=== PATIENT | female | born 1990 | race Caucasian/White ===

== ENCOUNTER 2020-02-21 08:46 | Emergency (ER) | payer MEDICARE, MEDICAID, SELFPAY ==
[2020-02-21 08:58] VITALS: BP 163/96; PULSE 100; RESP 18; TEMP 36.4; O2SAT 97; BMI 38.0
--- NOTE | 2020-02-21 09:13 | ECG_ITS ---
Test Reason : CHEST DISCOMFORT Blood Pressure : / mmHG Vent. Rate : 085 BPM Atrial Rate : 085 BPM P-R Int : 130 ms QRS Dur : 076 ms QT Int : 378 ms P-R-T Axes : 011 006 019 degrees QTc Int : 449 ms Normal sinus rhythm Normal ECG When compared with ECG of 09-OCT-2019 16:13, No significant change was found Referred By: Natalia Griffin Electronically Signed By:ADEBAYO PIÑA
--- NOTE | 2020-02-21 09:14 | XR_ITS ---
EXAMINATION: XR CHEST CLINICAL INFORMATION: Chest pain COMPARISON: 10/09/2019 TECHNIQUE: Frontal view of the chest was obtained. FINDINGS: Lungs are well-inflated and clear. Trachea is midline in position. No interstitial disease, consolidation or mass. No pleural effusion or pneumothorax. Cardiac silhouette and pulmonary vessels are normal in size. The mediastinum and octavia have normal contour. The visualized bones, and upper abdomen, are unremarkable. XR/XR chest 1V IMPRESSION: No acute cardiopulmonary abnormality.
--- NOTE | 2020-02-21 09:19 | ED.GENADULT ---
HPI - General Adult General Chief complaint: General Medical Stated complaint: facial swelling, multiple complaints Time Seen by Provider: 02/21/20 09:03 Source: patient Mode of arrival: ambulatory History of Present Illness HPI narrative: 29-year-old female with a past medical history of Brando's on levothyroxine complaining of facial, hand, and feet swelling x today. Also reports intermittent chest pain worsening the past couple days. Denies missing any doses of levothyroxine. Denies SOB, intraoral swelling, difficulty swallowing/handling secretions, cough, fever, recent travel Onset (ago): day(s) Related Data Allergies Allergy/AdvReac Type Severity Reaction Status Date / Time ventura Allergy Severe ANAPHYLAXIS Verified 02/21/20 08:55 soy [Soy] Allergy Severe ANAPHYLAXIS Verified 02/21/20 08:55 amoxicillin [Amoxicillin] Allergy Intermediate HIVES Verified 02/21/20 08:56 Amoxicillin Allergy Unknown anaphylaxis Uncoded 10/13/11 00:00 From Prozac AdvReac Intermediate HALLUCINATI Uncoded 11/29/19 16:43 ONS Review of Systems Review of Systems: Constitutional: No Weight loss, No Fever, No Chills, No Night Sweats ENT/Mouth: +facial swelling, No Hearing loss, No Ear Pain, No Nasal Congestion, No Hoarseness, No sore throat, No Swallowing Difficulty Eyes: No Eye Pain, No Swelling, No Vision Changes Cardiovascular: +Chest Pain, No SOB, No Dyspnea on Exertion, No Orthopnea Respiratory: No Cough, No Sputum, No Wheezing, No Smoke Exposure, No Dyspnea Gastrointestinal: No Nausea, No Vomiting, No Diarrhea, No Constipation, No Abdominal pain Musculoskeletal: No joint pain, No Myalgias, + generalized swelling Skin: No Skin Lesions, No rash Yes all other systems are reviewed and are negative [facility] Past Medical History Attestation statement: The following information was validated with the patient. Medical History (Updated 02/21/20 @ 11:03 by LAURA Rene) Brando thyroiditis, fibrous variant Social History Social History Advance Directives: No Advance Directives Information Provided: No Physical Exam Vital Signs: Vital Signs: Last Vital Signs Temp 97.6 F 02/21/20 08:58 Pulse 100 02/21/20 08:58 Resp 18 02/21/20 08:58 BP 163/96 H 02/21/20 08:58 Pulse Ox 97 02/21/20 08:58 Body Mass Index 38.0 Const: General: cooperative and healthy appearing Orientation/consciousness: patient oriented x3 Limitations: no limitations HENMT: Other: +mild generalized facial/submandibular swelling. No erythema/cellulitis/tenderness/fluctuance/induration Head: Yes normal to inspection Ears: hearing grossly normal bilaterally General nose exam: Normal external nose present Mouth: Normal oral and palatal mucosa present, lip normal, tongue normal, oropharynx normal, no drooling, no muffled voice and No restricted motion Throat: Yes posterior oropharynx normal, Yes uvula midline, No peritonsillar mass and No uvular edema Eyes: General: appearance normal, both eyes and all related structures EOM: EOMs intact bilaterally Neck: Neck: Yes normal visual inspection, Yes no lymphadenopathy, Yes no meningeal signs, Yes trachea midline and No torticollis Resp: Effort & Inspection: normal respiratory effort, not labored and no stridor Auscultation: clear to auscultation bilaterally, no crackles, no rhonchi and no wheezes Cardio: Rate: regular rate Heart sounds: S1 normal heart sound present and S2 normal heart sound present GI: Inspection: Yes normal to inspection Palpation (GI): Soft to palpation Skin: Rashes: no rashes Wounds: no wounds Neuro: General: patient oriented x3 and no meningeal signs Gait exam (Neuro): Normal gait present Extrem: Other: no appreciable hand/foot swelling General: Yes normal to inspection Course Course Course Narrative: -labs unremarkable, trop and TSH WNL UA with RBCs> currently menstruating CXR unremarkable Lab results discussed with patient including worrisome signs and symptoms and strict return precautions. Patient is to follow-up with her primary care doctor. Patient was given dose of Decadron in the ED. Medical Decision Making MDM Narrative Medical decision making narrative: 29-year-old female with a past medical history of Brando's on levothyroxine complaining of facial, hand, and feet swelling x today. Also reports intermittent chest pain worsening the past couple days. On exam VSS, NAD/nontoxic appearing, mild facial swelling noted. No intraoral swelling appreciated. Uvula midline. No respiratory distress, lungs CTA. Concern for metabolic abnormalities or thyroid dysfunction. Low concern for infectious etiology including [employer], Gilmar's angina, or cellulitis/edema. Rule out ACS. Plan: EKG, labs, CXR, PO Decadron, reassess Lab Data Result diagrams: 02/21/20 09:33 02/21/20 09:32 Labs: Lab Results 02/21/20 02/21/20 02/21/20 Range/Units 09:30 09:30 09:32 WBC (4.8-10.8) X10*3/uL RBC (4.20-5.50) X10*6/uL Hgb (12.0-16.0) g/dl Hct (37-47) % MCV (80-98) fL MCH (27.0-33.0) pg MCHC (31.0-35.0) g/dl RDW (11.0-16.0) % Plt Count (160-400) X10*3/uL MPV (9.4-12.3) fL Immature Gran % (Auto) (0.0-0.4) % Neut % (Auto) (45-73) % Lymph % (Auto) (20-40) % [place] % (Auto) (2-11) % Eos % (Auto) (0-4) % Baso % (Auto) (0-2) % Lymph # (Auto) (1.2-4.9) X10*3/uL [place] # (Auto) (0.1-1.2) X10*3/uL Eos # (Auto) (0.0-0.4) X10*3/uL Baso # (Auto) (0.0-0.2) X10*3/uL Abs Immat Gran (auto) (0.00-0.03) X10*3/uL Absolute Neuts (auto) (2.0-8.3) X10*3/uL Absolute Nucleated RBC (0.0-0.012) X10*3/uL Nucleated RBC % (auto) (0.0-0.2) /100WBC Hold Blue Top Sodium 135 (135-145) mmol/L Potassium 3.8 (3.3-5.1) mmol/l Chloride 104 (96-108) mmol/L Carbon Dioxide 21 L (22-29) mmol/L Anion Gap 14 (12-20) BUN 10 (9-16) mg/dL Creatinine 0.71 (0.5-1.4) mg/dL Estim Creat Clear Calc 117.7 Estimated GFR > 60 Random Glucose 105 (60-115) mg/dL Calcium 9.3 (8.4-10.2) mg/dL Magnesium 1.9 (1.6-2.6) mg/dL Total Bilirubin 0.4 (0.0-1.0) mg/dL Direct Bilirubin 0.2 (0.0-0.5) mg/dL AST 23 (5-31) U/L ALT 26 (0-31) U/L Alkaline Phosphatase 98 (39-117) U/L Troponin I High Sens (<3.5-17.0) ng/L B-Natriuretic Peptide (<100) pg/mL Total Protein 7.6 (6.5-8.0) g/dL Albumin 4.6 (3.5-5.0) g/dL TSH 1.40 (0.32-4.0) mIU/mL Urine Color RED Urine Appearance TURBID Urine pH 6.0 (5.0-8.0) Ur Specific [place] >= 1.030 H (1.005-1.025) Urine Protein 1+ H (NEG-TRACE) MG/DL Urine Glucose (UA) NEG (NEG) MG/DL Urine Ketones NEG (NEG) MG/DL Urine Blood 3+ H (NEG) Urine Nitrite NEG (NEG) Ur Leukocyte Esterase NEG (NEG) Urine RBC TNTC H (0) /HPF Urine WBC 1-4 (0-4) /HPF Ur Squamous Epith Cells 1+ /LPF Urine Bacteria 1+ /LPF Urine Test NEGATIVE (NEGATIVE) 02/21/20 02/21/20 02/21/20 Range/Units 09:32 09:32 09:33 WBC 7.5 (4.8-10.8) X10*3/uL RBC 4.81 (4.20-5.50) X10*6/uL Hgb 13.6 (12.0-16.0) g/dl Hct 40.1 (37-47) % MCV 83.4 (80-98) fL MCH 28.3 (27.0-33.0) pg MCHC 33.9 (31.0-35.0) g/dl RDW 12.3 (11.0-16.0) % Plt Count 257 (160-400) X10*3/uL MPV 10.7 (9.4-12.3) fL Immature Gran % (Auto) 0.3 (0.0-0.4) % Neut % (Auto) 69.0 (45-73) % Lymph % (Auto) 19.7 L (20-40) % [place] % (Auto) 6.9 (2-11) % Eos % (Auto) 3.7 (0-4) % Baso % (Auto) 0.4 (0-2) % Lymph # (Auto) 1.5 (1.2-4.9) X10*3/uL [place] # (Auto) 0.5 (0.1-1.2) X10*3/uL Eos # (Auto) 0.3 (0.0-0.4) X10*3/uL Baso # (Auto) 0.0 (0.0-0.2) X10*3/uL Abs Immat Gran (auto) 0.02 (0.00-0.03) X10*3/uL Absolute Neuts (auto) 5.2 (2.0-8.3) X10*3/uL Absolute Nucleated RBC 0.000 (0.0-0.012) X10*3/uL Nucleated RBC % (auto) 0.0 (0.0-0.2) /100WBC Hold Blue Top SEE NOTE Sodium (135-145) mmol/L Potassium (3.3-5.1) mmol/l Chloride (96-108) mmol/L Carbon Dioxide (22-29) mmol/L Anion Gap (12-20) BUN (9-16) mg/dL Creatinine (0.5-1.4) mg/dL Estim Creat Clear Calc Estimated GFR Random Glucose (60-115) mg/dL Calcium (8.4-10.2) mg/dL Magnesium (1.6-2.6) mg/dL Total Bilirubin (0.0-1.0) mg/dL Direct Bilirubin (0.0-0.5) mg/dL AST (5-31) U/L ALT (0-31) U/L Alkaline Phosphatase (39-117) U/L Troponin I High Sens < 3.5 (<3.5-17.0) ng/L B-Natriuretic Peptide < 10 (<100) pg/mL Total Protein (6.5-8.0) g/dL Albumin (3.5-5.0) g/dL TSH (0.32-4.0) mIU/mL Urine Color Urine Appearance Urine pH (5.0-8.0) Ur Specific [place] (1.005-1.025) Urine Protein (NEG-TRACE) MG/DL Urine Glucose (UA) (NEG) MG/DL Urine Ketones (NEG) MG/DL Urine Blood (NEG) Urine Nitrite (NEG) Ur Leukocyte Esterase (NEG) Urine RBC (0) /HPF Urine WBC (0-4) /HPF Ur Squamous Epith Cells /LPF Urine Bacteria /LPF Urine Test (NEGATIVE) ECG Data Attestation: I personally reviewed and interpreted this ECG as follows: Interpretation: NSR, rate 85, no ischemic changes Discharge Plan Discharge Clinical Impression: Facial swelling Patient Disposition: Home, Self-Care Instructions: Edema (ED) Additional Instructions: Your blood work, chest x-ray were unremarkable Your given a dose of a p.o. steroid in the ED which should help with swelling You can also take Tylenol/ Motrin at home If swelling persists or worsens, you develop shortness of breath, difficulty breathing, wheezing, or throat closing sensation return to the ED immediately Referrals: Jonathon García MD [Primary Care Provider] - 2 days
[2020-02-21 09:39] LABS: MANUAL DIFF FLAG NO
[2020-02-21 09:42] LABS: Basophils Percent Auto 0.4 % (0-2); Eosinophils Absolute Auto 0.3 X10*3/uL (0.0-0.4); Eosinophils Percent Auto 3.7 % (0-4); Hematocrit 40.1 % (37-47); Hemoglobin 13.6 g/dl (12.0-16.0); Imm Gran Abs Auto 0.02 X10*3/uL (0.00-0.03); Imm Gran Pct Auto 0.3 % (0.0-0.4); Lymphocytes Absolute Auto 1.5 X10*3/uL (1.2-4.9); Lymphocytes Percent Auto 19.7 % (20-40); Mean Corpuscular HGB Conc 33.9 g/dl (31.0-35.0); Mean Corpuscular Hemoglobin 28.3 pg (27.0-33.0); Mean Corpuscular Volume 83.4 fL (80-98); Mean Platelet Volume 10.7 fL (9.4-12.3); Monocytes Absolute Auto 0.5 X10*3/uL (0.1-1.2); Monocytes Percent Auto 6.9 % (2-11); Neutrophils Absolute Auto 5.2 X10*3/uL (2.0-8.3); Platelet Count 257 X10*3/uL (160-400); Red Blood Count 4.81 X10*6/uL (4.20-5.50); Red Cell Distribution Width 12.3 % (11.0-16.0); White Blood Count 7.5 X10*3/uL (4.8-10.8)
[2020-02-21 10:06] LABS: Glucose Urine UA NEG (NEG); Leukocyte Esterase Urine NEG (NEG); Nitrite Urine NEG (NEG); Specific Gravity - Urine >= 1.030 (1.005-1.025); Urine Blood 3+ (NEG); Urine Ketones NEG (NEG); Urine Protein 1+ MG/DL (NEG-TRACE)
[2020-02-21 10:07] LABS: Color Urine RED
[2020-02-21 10:08] LABS: Appearance Urine TURBID
[2020-02-21 10:09] LABS: UPreg QC Valid YES; Urine Pregnancy NEGATIVE (NEGATIVE)
[2020-02-21 10:10] LABS: Alanine Aminotransferase 26 U/L (0-31); Albumin Level 4.6 g/dL (3.5-5.0); Alkaline Phosphatase 98 U/L (39-117); Anion Gap 14 (12-20); Aspartate Amino Transferase 23 U/L (5-31); Bilirubin Direct 0.2 mg/dL (0.0-0.5); Bilirubin Total 0.4 mg/dL (0.0-1.0); Blood Urea Nitrogen 10 mg/dL (9-16); Calcium 9.3 mg/dL (8.4-10.2); Carbon Dioxide 21 mmol/L (22-29); Chloride 104 mmol/L (96-108); Creatinine Clr Calc Pharmacy 117.7; Estimated Glomerular Filt Rate > 60; Glucose Random 105 mg/dL (60-115); Magnesium 1.9 mg/dL (1.6-2.6); Potassium 3.8 mmol/l (3.3-5.1); Sodium 135 mmol/L (135-145); Total Protein 7.6 g/dL (6.5-8.0)
[2020-02-21 10:10] LABS: Bacteria Urine 1+ /LPF; RBC Urine TNTC /HPF (0); Squamous Epithelial Cell Urine 1+ /LPF
[2020-02-21 10:13] LABS: B Type Natriuretic Peptide < 10 pg/mL (<100); Troponin-I High Sensitivity < 3.5 ng/L (<3.5-17.0)
[2020-02-21] MEDS: dexAMETHasone 6 MG TABLET PO (10:41)
== END 2020-02-21 11:17 | disposition home or self-care (01) ==
PROVIDERS: Physician Assistant; Emergency Provider Emergency Medicine; PCP Family Medicine
DX: R22.0 Localized swelling, mass and lump, head (principal); E06.3 Autoimmune thyroiditis; Z79.899 Other long term (current) drug therapy
CPT/HCPCS: 36415; 71045; 80048; 80076; 81001; 81003; 81025; 83735; 83880; 84443; 84484; 85025; 93005; 99283; J8540

== ENCOUNTER 2020-02-25 13:47 | Emergency (ER) | payer MEDICARE, MEDICAID, SELFPAY ==
--- NOTE | 2020-02-25 | ECG_ITS ---
Test Reason : CHEST PAIN Blood Pressure : / mmHG Vent. Rate : 080 BPM Atrial Rate : 080 BPM P-R Int : 120 ms QRS Dur : 080 ms QT Int : 378 ms P-R-T Axes : 016 005 035 degrees QTc Int : 435 ms Normal sinus rhythm with sinus arrhythmia Nonspecific T wave abnormality Abnormal ECG When compared with ECG of 21-FEB-2020 09:21, No significant change was found Referred By: Generic ED Physician Electronically Signed By:Arthur Caputo
[2020-02-25 14:05] VITALS: BP 149/73; PULSE 94; RESP 17; TEMP 36.6; O2SAT 96; BMI 38.0
--- NOTE | 2020-02-25 14:27 | PC.NURSE ---
ekg done at 1427 by natalia (scoc)baljinder and reviewed by dr. jameson.
--- NOTE | 2020-02-25 16:24 | ED.CHESTPAIN ---
HPI - Chest Pain General Chief Complaint: Chest Pain Stated Complaint: SOB Time Seen by Provider: 02/25/20 16:23 Source: patient Mode of arrival: ambulatory Limitations: no limitations History of Present Illness HPI narrative: Patient history of Brando's thyroiditis on levothyroxine was seen here on 02/20 for body aches chest pain facial swelling workup was done which was negative started on prednisone now she comes here as the pain is still going on. Patient describes chest pain as squeezing pain lasting 5-10 seconds no shortness of breath no radiation of pain no palpitation patient does not feel any anxiety no known coronary risk factors no risk factor for PE MD complaint: chest pain Onset (ago): day(s) (7) Related Data Allergies Allergy/AdvReac Type Severity Reaction Status Date / Time ventura Allergy Severe ANAPHYLAXIS Verified 02/21/20 08:55 soy [Soy] Allergy Severe ANAPHYLAXIS Verified 02/21/20 08:55 amoxicillin [Amoxicillin] Allergy Intermediate HIVES Verified 02/21/20 08:56 Amoxicillin Allergy Unknown anaphylaxis Uncoded 10/13/11 00:00 From Prozac AdvReac Intermediate HALLUCINATI Uncoded 11/29/19 16:43 ONS Review of Systems Review of Systems: REVIEW OF SYSTEMS: Pertinent positives and negatives are stated above in the history. GEN: no fevers, chills, fatigue HEENT: no nasal congestion, sore throat, ear pain NEURO: no headache, dizziness, focal weakness PULM: no cough, shortness of breath CV: no palpitations, LE edema ABD: no abdominal pain, nausea, vomiting, diarrhea : no dysuria, urgency, frequency SKIN: no rash ROS otherwise negative x 10 PMFSH Past Medical History Medical History Brando thyroiditis, fibrous variant Social History Social History Alcohol intake: current Alcohol intake frequency: holidays/special occasions only Smoking Status: Former smoker Use of substances other than those prescribed or required for medical reasons: No Advance Directives: No Advance Directives Information Provided: No Physical Exam Vital Signs: Vital Signs: Last Vital Signs Temp 98.1 F 02/25/20 16:38 Pulse 72 02/25/20 16:38 Resp 18 02/25/20 16:38 BP 147/83 H 02/25/20 16:38 Pulse Ox 98 02/25/20 16:38 Body Mass Index 38.0 Appearance: Alert. Oriented X3. No acute distress. Anxious Eyes: Pupils equal, round and reactive to light. ENT: Pharynx normal. Neck: Normal inspection. Neck supple. CVS: Normal heart rate and rhythm. Pulses normal. Respiratory: No respiratory distress. Breath sounds normal. Abdomen: Soft and nontender. Skin: Skin warm and dry. Normal skin color. Normal skin turgor. Extremities: No lower extremity edema. Good range of movement Neuro: Oriented X 3. No motor deficit. No sensory deficit. MDM - Chest Pain Lab Data Attestation: I reviewed the patient's lab results. Labs: Lab Results 02/25/20 02/25/20 Range/Units 16:49 16:49 D-Dimer < 200 NG/ML Troponin I High Sens < 3.5 (<3.5-17.0) ng/L ECG Data ECG #1: Attestation: I personally reviewed and interpreted this ECG as follows: Interpretation: Normal sinus rhythm ventricular rate 85 normal intervals normal axis no acute ST-T changes impression normal EKG Discharge Plan Discharge Clinical Impression: Atypical chest pain Patient Disposition: Home, Self-Care Instructions: Musculoskeletal Pain (ED) Additional Instructions: Rest at home take Tylenol/Motrin for pain if as needed follow with PCP the blood workup is negative for coronary artery disease this time your etiology for chest pain is likely musculoskeletal Interventions: ED Discharge Assessment Last Done: 02/25/20 18:12 Discharge Date/Time: 02/25/20 18:13
[2020-02-25 16:38] VITALS: BP 147/83; PULSE 72; RESP 18; TEMP 36.7; O2SAT 98
--- NOTE | 2020-02-25 16:51 | PC.NURSE ---
iv inserted, labs drawn, ekg performed out in triage, court recording monitor applied [id number], vss, will continue to monitor.
[2020-02-25 17:08] LABS: D Dimer < 200 NG/ML
[2020-02-25 17:35] LABS: Troponin-I High Sensitivity < 3.5 ng/L (<3.5-17.0)
== END 2020-02-25 18:13 | disposition home or self-care (01) ==
PROVIDERS: Emergency Provider Internal Medicine; PCP Family Medicine
DX: R07.89 Other chest pain (principal); E06.3 Autoimmune thyroiditis; Z79.899 Other long term (current) drug therapy
CPT/HCPCS: 36415; 84484; 85379; 93005; 99283; 99284

== ENCOUNTER → 2020-03-26 08:02 | Outpatient (BNVA) | payer MEDICARE, MEDICAID, SELFPAY | PROVIDERS: Visit Provider Obstetrics & Gynecology | DX: N83.292 Other ovarian cyst, left side (principal); N73.0 Acute parametritis and pelvic cellulitis; R10.2 Pelvic and perineal pain; N92.1 Excessive and frequent menstruation with irregular cycle; G89.29 Other chronic pain | CPT/HCPCS: Q3014 ==

== ENCOUNTER 2020-03-28 17:52 | Emergency (ER) | payer MEDICARE, MEDICAID, SELFPAY ==
[2020-03-28 18:13] VITALS: BP 142/84; PULSE 89; RESP 16; TEMP 36.7; O2SAT 98; BMI 40.4
[2020-03-28 21:20] LABS: MANUAL DIFF FLAG NO
--- NOTE | 2020-03-28 21:21 | PC.NURSE ---
Pt from home, reports being seen here Tuesday for a ruptured ovarian cyst. Pt states she has been taking ABX and Motrin with no relief, states the pain has worsened. Pt assisted OOB to the bathroom to provide urine sample. Labs obtained in Triage. Plan to update VS upon return from bathroom. Continue to monitor.
[2020-03-28 21:23] LABS: Basophils Percent Auto 0.5 % (0-2); Eosinophils Absolute Auto 0.2 X10*3/uL (0.0-0.4); Eosinophils Percent Auto 2.8 % (0-4); Hematocrit 39.8 % (37-47); Hemoglobin 13.4 g/dl (12.0-16.0); Imm Gran Abs Auto 0.03 X10*3/uL (0.00-0.03); Imm Gran Pct Auto 0.4 % (0.0-0.4); Lymphocytes Absolute Auto 2.4 X10*3/uL (1.2-4.9); Lymphocytes Percent Auto 30.6 % (20-40); Mean Corpuscular HGB Conc 33.7 g/dl (31.0-35.0); Mean Corpuscular Hemoglobin 28.7 pg (27.0-33.0); Mean Corpuscular Volume 85.2 fL (80-98); Mean Platelet Volume 11.1 fL (9.4-12.3); Monocytes Absolute Auto 0.5 X10*3/uL (0.1-1.2); Monocytes Percent Auto 6.3 % (2-11); Neutrophils Absolute Auto 4.7 X10*3/uL (2.0-8.3); Neutrophils Percent Auto 59.4 % (45-73); Platelet Count 227 X10*3/uL (160-400); Red Blood Count 4.67 X10*6/uL (4.20-5.50); Red Cell Distribution Width 12.5 % (11.0-16.0); White Blood Count 7.9 X10*3/uL (4.8-10.8)
[2020-03-28 21:25] VITALS: BP 144/87; PULSE 82; RESP 16; TEMP 36.4
--- NOTE | 2020-03-28 21:27 | PC.NURSE ---
UA obtained and sent. VSS. Awaiting primary MD eval.
[2020-03-28 21:49] LABS: Alanine Aminotransferase 19 U/L (0-31); Albumin Level 4.6 g/dL (3.5-5.0); Alkaline Phosphatase 92 U/L (39-117); Anion Gap 14 (12-20); Aspartate Amino Transferase 15 U/L (5-31); Bilirubin Total 0.5 mg/dL (0.0-1.0); Blood Urea Nitrogen 12 mg/dL (9-16); Calcium 9.2 mg/dL (8.4-10.2); Carbon Dioxide 23 mmol/L (22-29); Chloride 105 mmol/L (96-108); Creatinine Clr Calc Pharmacy 109.5; Estimated Glomerular Filt Rate > 60; Glucose Random 93 mg/dL (60-115); Sodium 138 mmol/L (135-145); Total Protein 7.4 g/dL (6.5-8.0)
--- NOTE | 2020-03-28 21:49 | ED.ABDPAIN ---
HPI - Abdominal Pain General Chief Complaint: Abdominal Pain Stated Complaint: Abdominal Pain Time Seen by Provider: 03/28/20 21:25 Source: patient Mode of arrival: ambulatory Limitations: no limitations History of Present Illness MD elicited complaint: flank pain Pertinent past history: other (Ruptured ovarian cyst) Onset (ago): week(s) (1) Pain Consistency: constant Location: LLQ, L flank, suprapubic, pelvis and groin Severity: similar to previous episodes Pain scale (0-10): 10 Quality: cramping, stabbing and aching Exacerbating factors: bowel movement, vomiting and movement Relieving factors: nothing Associated symptoms: nausea and vomiting Treatments prior to arrival: NSAIDs Related Data Patient : No Home Medications Medication Instructions Recorded Confirmed levothyroxine 75 mcg tablet 75 mcg PO DAILY 03/26/20 03/26/20 Previous Rx's Medication Instructions Recorded ibuprofen 600 mg PO Q8H PRN #10 tab 03/23/20 levofloxacin 500 mg PO DAILY #7 tab 03/23/20 metronidazole [Flagyl] 500 mg PO BID #14 tab 03/23/20 ondansetron HCl [Zofran] 4 mg PO Q6H PRN #14 tab 03/23/20 ondansetron HCl [Zofran] 4 mg PO Q8H PRN #14 tab 03/28/20 phenazopyridine [Pyridium] 200 mg PO TID PRN #6 tab 03/28/20 sulfamethoxazole-trimethoprim 1 tab PO Q12H 3 Days #6 tab 03/28/20 [Bactrim DS] tramadol 50 mg PO BID PRN #3 tab 03/28/20 Allergies Allergy/AdvReac Type Severity Reaction Status Date / Time ventura Allergy Severe ANAPHYLAXIS Verified 02/21/20 08:55 soy [Soy] Allergy Severe ANAPHYLAXIS Verified 02/21/20 08:55 amoxicillin [Amoxicillin] Allergy Intermediate HIVES Verified 02/21/20 08:56 Amoxicillin Allergy Unknown anaphylaxis Uncoded 10/13/11 00:00 From Prozac AdvReac Intermediate HALLUCINATI Uncoded 11/29/19 16:43 ONS Review of Systems Review of Systems Constitutional: No Weight loss, No Fever, No Chills, No Night Sweats, No Fatigue, No Malaise ENT/Mouth: No Hearing loss, No Ear Pain, No Nasal Congestion, No Sinus Pain, No Hoarseness, No sore throat, No Rhinorrhea, No Swallowing Difficulty Eyes: No Eye Pain, No Swelling, No Redness, No Foreign Body, No Discharge, No Vision Changes Cardiovascular: No Chest Pain, No SOB, No Dyspnea on Exertion, No Orthopnea, No Edema, No Palpitations Respiratory: No Cough, No Sputum, No Wheezing, No Smoke Exposure, No Dyspnea Gastrointestinal: Positive Nausea, Positive Vomiting, no Diarrhea, positive abdominal Pain, positive left flank pain, positive suprapubic pain, No Hematochezia, No Melena Genitourinary: no irregular bleeding, No Dysuria, No Urinary Frequency, No Hematuria, No Urinary Incontinence, No Urgency, No Flank Pain, No Urinary Flow Changes, No Hesitancy Musculoskeletal: No joint pain, No Myalgias, No Joint Swelling Skin: No Skin Lesions, No rash Neuro: No Weakness, No Numbness, No Paresthesias, No Loss of Consciousness, No Dizziness, No Headache Psych: No Anxiety/Panic, No Depression, No SI/HI/AH/VH, No Social Issues Heme/Lymph: No Bruising, No Bleeding,No Lymphadenopathy Endocrine: No Polyuria, No Polydipsia, No Temperature Intolerance Yes all other systems are reviewed and are negative Physical Exam Vital Signs: Vital Signs: Last Vital Signs Temp 97.5 F 03/28/20 21:25 Pulse 82 03/28/20 23:51 Resp 16 03/28/20 23:51 BP 139/87 03/28/20 23:51 Pulse Ox 98 03/28/20 18:13 Body Mass Index 40.4 Appearance: Alert. Oriented X3. Moderate distress. Eyes: Pupils equal, round and reactive to light. ENT: Pharynx normal. Neck: Normal inspection. Neck supple. CVS: Normal heart rate and rhythm. Pulses normal. Respiratory: No respiratory distress. Breath sounds normal. Abdomen: Soft and tender to palpation to the left lower quadrant, suprapubic, and right lower quadrant of abdomen. Negative psoas, Bansal, obturator, Rovsing sign. Positive bilateral CVA tenderness. Skin: Skin warm and dry. Normal skin color. Normal skin turgor. Extremities: No lower extremity edema. Neuro: No motor deficit. No sensory deficit. Course Course Course Narrative: 29-year-old female presents with abdominal pain, pain on bowel movement, dysuria, and finding of ruptured ovarian cyst on 03/23/2020. She was evaluated by OBGYN, given pelvic ultrasound with no significant findings other than a small amount of free fluid consistent with ovarian rupture. Patient is describing dyspareunia, change in shape of her bowel movements over the past 24 hours, pain and pressure in the pelvis and rectum. She does not report having any sexual activity, vaginal or anal trauma, denies vaginal discharge or vaginal and rectal bleeding. As patient does have recent history of suspected ovarian rupture plan is to rule out acute abdomen, peritonitis, renal colic, pyelonephritis, UTI. Plan is for fluid resuscitation, CBC, Chem 7, CT scan of abdomen and pelvis, and urinalysis. Labs are unremarkable, urinalysis may indicate UTI, CT scan negative for acute findings requiring emergent intervention. Detailed discussion with patient regarding findings, plan is to treat for UTI, and for patient to follow-up with primary care physician and or gastroenterology for change in bowel habits. MDM - Abdominal Pain Differential Diagnosis Differential diagnosis: Likely abdominal pain, acute appendicitis, bowel perforation, calculus of kidney, constipation, diverticulitis, endometriosis, gastroenteritis, ovarian cyst and renal colic Medical Records Attestation: I reviewed the patient's medical records. Lab Data Attestation: I reviewed the patient's lab results. Result diagrams: 03/28/20 20:58 03/28/20 20:58 Labs: Lab Results 03/28/20 03/28/20 03/28/20 Range/Units 20:58 20:58 20:59 WBC 7.9 (4.8-10.8) X10*3/uL RBC 4.67 (4.20-5.50) X10*6/uL Hgb 13.4 (12.0-16.0) g/dl Hct 39.8 (37-47) % MCV 85.2 (80-98) fL MCH 28.7 (27.0-33.0) pg MCHC 33.7 (31.0-35.0) g/dl RDW 12.5 (11.0-16.0) % Plt Count 227 (160-400) X10*3/uL MPV 11.1 (9.4-12.3) fL Immature Gran % (Auto) 0.4 (0.0-0.4) % Neut % (Auto) 59.4 (45-73) % Lymph % (Auto) 30.6 (20-40) % [place] % (Auto) 6.3 (2-11) % Eos % (Auto) 2.8 (0-4) % Baso % (Auto) 0.5 (0-2) % Lymph # (Auto) 2.4 (1.2-4.9) X10*3/uL [place] # (Auto) 0.5 (0.1-1.2) X10*3/uL Eos # (Auto) 0.2 (0.0-0.4) X10*3/uL Baso # (Auto) 0.0 (0.0-0.2) X10*3/uL Abs Immat Gran (auto) 0.03 (0.00-0.03) X10*3/uL Absolute Neuts (auto) 4.7 (2.0-8.3) X10*3/uL Absolute Nucleated RBC 0.000 (0.0-0.012) X10*3/uL Nucleated RBC % (auto) 0.0 (0.0-0.2) /100WBC Hold Blue Top SEE NOTE Sodium 138 (135-145) mmol/L Potassium 4.0 (3.3-5.1) mmol/l Chloride 105 (96-108) mmol/L Carbon Dioxide 23 (22-29) mmol/L Anion Gap 14 (12-20) BUN 12 (9-16) mg/dL Creatinine 0.79 (0.5-1.4) mg/dL Estim Creat Clear Calc 109.5 Estimated GFR > 60 Random Glucose 93 (60-115) mg/dL Calcium 9.2 (8.4-10.2) mg/dL Total Bilirubin 0.5 (0.0-1.0) mg/dL AST 15 (5-31) U/L ALT 19 (0-31) U/L Alkaline Phosphatase 92 (39-117) U/L Total Protein 7.4 (6.5-8.0) g/dL Albumin 4.6 (3.5-5.0) g/dL Urine Color Urine Appearance Urine pH (5.0-8.0) Ur Specific [place] (1.005-1.025) Urine Protein (NEG-TRACE) MG/DL Urine Glucose (UA) (NEG) MG/DL Urine Ketones (NEG) MG/DL Urine Blood (NEG) Urine Nitrite (NEG) Ur Leukocyte Esterase (NEG) Urine RBC (0) /HPF Urine WBC (0-4) /HPF Ur Squamous Epith Cells /LPF Urine Bacteria /LPF Urine Mucus /LPF Urine Test (NEGATIVE) 03/28/20 Range/Units 21:25 WBC (4.8-10.8) X10*3/uL RBC (4.20-5.50) X10*6/uL Hgb (12.0-16.0) g/dl Hct (37-47) % MCV (80-98) fL MCH (27.0-33.0) pg MCHC (31.0-35.0) g/dl RDW (11.0-16.0) % Plt Count (160-400) X10*3/uL MPV (9.4-12.3) fL Immature Gran % (Auto) (0.0-0.4) % Neut % (Auto) (45-73) % Lymph % (Auto) (20-40) % [place] % (Auto) (2-11) % Eos % (Auto) (0-4) % Baso % (Auto) (0-2) % Lymph # (Auto) (1.2-4.9) X10*3/uL [place] # (Auto) (0.1-1.2) X10*3/uL Eos # (Auto) (0.0-0.4) X10*3/uL Baso # (Auto) (0.0-0.2) X10*3/uL Abs Immat Gran (auto) (0.00-0.03) X10*3/uL Absolute Neuts (auto) (2.0-8.3) X10*3/uL Absolute Nucleated RBC (0.0-0.012) X10*3/uL Nucleated RBC % (auto) (0.0-0.2) /100WBC Hold Blue Top Sodium (135-145) mmol/L Potassium (3.3-5.1) mmol/l Chloride (96-108) mmol/L Carbon Dioxide (22-29) mmol/L Anion Gap (12-20) BUN (9-16) mg/dL Creatinine (0.5-1.4) mg/dL Estim Creat Clear Calc Estimated GFR Random Glucose (60-115) mg/dL Calcium (8.4-10.2) mg/dL Total Bilirubin (0.0-1.0) mg/dL AST (5-31) U/L ALT (0-31) U/L Alkaline Phosphatase (39-117) U/L Total Protein (6.5-8.0) g/dL Albumin (3.5-5.0) g/dL Urine Color DARK YELLOW Urine Appearance HAZY Urine pH 5.5 (5.0-8.0) Ur Specific [place] >= 1.030 H (1.005-1.025) Urine Protein TRACE (NEG-TRACE) MG/DL Urine Glucose (UA) NEG (NEG) MG/DL Urine Ketones NEG (NEG) MG/DL Urine Blood 3+ H (NEG) Urine Nitrite NEG (NEG) Ur Leukocyte Esterase NEG (NEG) Urine RBC 1-4 (0) /HPF Urine WBC 5-9 H (0-4) /HPF Ur Squamous Epith Cells 3+ /LPF Urine Bacteria TRACE /LPF Urine Mucus 3+ /LPF Urine Test NEGATIVE (NEGATIVE) Imaging Data CT scan - abdomen: Attestation: I personally reviewed and interpreted this imaging study as follows: Radiologist's impression: EXAMINATION: CT ABDOMEN AND PELVIS WITH CONTRAST CLINICAL INFORMATION: Abdominal pain. Pain on bowel movement COMPARISON: 03/23/2020 TECHNIQUE: Multidetector volumetric images were obtained from the superior aspect of the liver through the pubic symphysis following administration 85 mL of Omnipaque 350 intravenous contrast. Sagittal and coronal reformatted images were obtained on the technologist's workstation. Oral contrast: No This CT examination was performed using dose optimization techniques as appropriate, variously including the following: *Automated exposure control *Adjustment of mA and/or kV according to patient size (this includes techniques or standardized protocols for targeted exams where dose is matched to indication/reason for exam; i.e. extremities or head) *Use of iterative reconstruction technique DLP: 754 mGy-cm FINDINGS: LUNG BASES: The visualized lung bases are unremarkable. LIVER, GALLBLADDER, AND BILIARY TREE: The liver is normal in size, shape, and attenuation. No focal hepatic lesion or biliary ductal dilatation is present. The gallbladder is unremarkable with no evidence of radiopaque gallstones, gallbladder wall thickening, or obvious pericholecystic inflammatory changes. PANCREAS: Unremarkable. SPLEEN: Incidentally noted splenule again seen. The spleen is normal in size. ADRENAL GLANDS: Unremarkable. KIDNEYS AND URETERS: The kidneys are normal in size, shape, and attenuation. No hydronephrosis, hydroureter, or calculi seen. No perinephric stranding. BLADDER: Unremarkable. GASTROINTESTINAL TRACT: Stomach and small bowel are nondilated. Normal appendix. There is sigmoid diverticulosis but no evidence of colitis or diverticulitis. ABDOMINAL WALL: No significant hernia is appreciated. LYMPH NODES: Normal. VASCULAR: Unremarkable. PELVIC VISCERA: Normal CT appearance of the uterus. Normal appearance of the ovaries for a reproductive age female patient. OSSEOUS STRUCTURES: Unremarkable. CT/CT abdomen pelvis w con IMPRESSION: No acute CT finding Discharge Plan Discharge Clinical Impression: Ovarian cyst rupture UTI (urinary tract infection) Qualifiers: Urinary tract infection type: acute cystitis Hematuria presence: with hematuria Qualified Code(s): N30.01 - Acute cystitis with hematuria Patient Disposition: Home, Self-Care Instructions: Urinary Tract Infection in Women (ED), Ruptured Ovarian Cyst (ED) Additional Instructions: You were evaluated for abdominal pain. Pelvic ultrasound from 03/23/2020 indicates ruptured ovarian cyst, CT scan with contrast of the abdomen and pelvis not show any findings requiring emergent intervention. Urinalysis may indicate UTI. We are treating you with Bactrim for the next 3 days. Please take this medication twice a day and complete the entire course of this medication. Please take Pyridium as needed for bladder spasms. This medication turns her urine bright orange. This is a normal side effect. We prescribed tramadol for pain management. This medication is narcotic and has high risk for addiction and abuse. I am only giving you 2 tablets. You must follow-up with her primary care physician for further pain management. You may consider following up with Gynecology and Gastroenterology for change in bowel habits. Thank you for choosing this emergency department for evaluation. Please follow-up with primary care physician as needed. Return to the emergency department for any new, concerning, or worsening symptoms. Prescriptions: New sulfamethoxazole-trimethoprim [Bactrim DS] 800-160 mg tablet 1 tab PO Q12H 3 Days Qty: 6 RF: 0 phenazopyridine [Pyridium] 200 mg tablet 200 mg PO TID PRN (Reason: pain) Qty: 6 RF: 0 ondansetron HCl [Zofran] 4 mg tablet 4 mg PO Q8H PRN (Reason: nausea and vomiting) Qty: 14 RF: 0 tramadol 50 mg tablet 50 mg PO BID PRN (Reason: pain) Qty: 3 RF: 0 No Action ibuprofen 600 mg tablet 600 mg PO Q8H PRN (Reason: pain) Qty: 10 RF: 0 metronidazole [Flagyl] 500 mg tablet 500 mg PO BID Qty: 14 RF: 0 levofloxacin 500 mg tablet 500 mg PO DAILY Qty: 7 RF: 0 ondansetron HCl [Zofran] 4 mg tablet 4 mg PO Q6H PRN (Reason: nausea and vomiting) Qty: 14 RF: 0 levothyroxine 75 mcg tablet 75 mcg PO DAILY RF: 0 Interventions: ED Discharge Assessment Last Done: 03/29/20 00:59 Discharge Date/Time: 03/29/20 01:01 [facility] Past Medical History Attestation statement: The following information was validated with the patient. Medical History Deafness in right ear Brando thyroiditis, fibrous variant Hypertension Surgical History H/O wrist surgery Hx of section Hx of tonsillectomy Hx of tubal ligation Social History Social History Alcohol intake: never Smoking Status: Current every day smoker Tobacco Type: Cigarette Cigarettes Per Day: 2 Advance Directives: No Advance Directives Information Provided: Yes Sexual orientation: Straight/Heterosexual
[2020-03-28 21:51] LABS: Glucose Urine UA NEG (NEG); Leukocyte Esterase Urine NEG (NEG); Nitrite Urine NEG (NEG); PH 5.5 (5.0-8.0); Specific Gravity - Urine >= 1.030 (1.005-1.025); Urine Blood 3+ (NEG); Urine Ketones NEG (NEG); Urine Protein TRACE MG/DL (NEG-TRACE)
[2020-03-28 21:52] LABS: Appearance Urine HAZY; Color Urine DARK YELLOW
[2020-03-28 21:53] LABS: UPreg QC Valid YES; Urine Pregnancy NEGATIVE (NEGATIVE)
--- NOTE | 2020-03-28 21:54 | CT_ITS ---
EXAMINATION: CT ABDOMEN AND PELVIS WITH CONTRAST CLINICAL INFORMATION: Abdominal pain. Pain on bowel movement COMPARISON: 03/23/2020 TECHNIQUE: Multidetector volumetric images were obtained from the superior aspect of the liver through the pubic symphysis following administration 85 mL of Omnipaque 350 intravenous contrast. Sagittal and coronal reformatted images were obtained on the technologist's workstation. Oral contrast: No This CT examination was performed using dose optimization techniques as appropriate, variously including the following: *Automated exposure control *Adjustment of mA and/or kV according to patient size (this includes techniques or standardized protocols for targeted exams where dose is matched to indication/reason for exam; i.e. extremities or head) *Use of iterative reconstruction technique DLP: 754 mGy-cm FINDINGS: LUNG BASES: The visualized lung bases are unremarkable. LIVER, GALLBLADDER, AND BILIARY TREE: The liver is normal in size, shape, and attenuation. No focal hepatic lesion or biliary ductal dilatation is present. The gallbladder is unremarkable with no evidence of radiopaque gallstones, gallbladder wall thickening, or obvious pericholecystic inflammatory changes. PANCREAS: Unremarkable. SPLEEN: Incidentally noted splenule again seen. The spleen is normal in size. ADRENAL GLANDS: Unremarkable. KIDNEYS AND URETERS: The kidneys are normal in size, shape, and attenuation. No hydronephrosis, hydroureter, or calculi seen. No perinephric stranding. BLADDER: Unremarkable. GASTROINTESTINAL TRACT: Stomach and small bowel are nondilated. Normal appendix. There is sigmoid diverticulosis but no evidence of colitis or diverticulitis. ABDOMINAL WALL: No significant hernia is appreciated. LYMPH NODES: Normal. VASCULAR: Unremarkable. PELVIC VISCERA: Normal CT appearance of the uterus. Normal appearance of the ovaries for a reproductive age female patient. OSSEOUS STRUCTURES: Unremarkable. CT/CT abdomen pelvis w con IMPRESSION: No acute CT findings.
[2020-03-28 22:02] LABS: Bacteria Urine TRACE /LPF; Mucus Urine 3+ /LPF; Squamous Epithelial Cell Urine 3+ /LPF; UACC CULT YES
[2020-03-28] MEDS: Ketorolac Tromethamine 30 MG/ML VIAL IVPUSH (22:15)
[2020-03-28] MEDS: ondansetron HCL 4 MG/2 ML VIAL IVPUSH (22:15)
[2020-03-28] MEDS: 0.9 % Sodium Chloride 1,000 ML 999 ML IVCONT (22:15)
--- NOTE | 2020-03-28 22:17 | PC.NURSE ---
IV established, pt medicated per MAR, IVF infusing. Pt refusing Morphine at this time. Continue to monitor.
--- NOTE | 2020-03-28 22:43 | PC.NURSE ---
Returns from CT on hospital bed without incident.
[2020-03-28] MEDS: iohexoL 350 MG/ML 100 ML INFUS..BTL IV (22:45)
--- NOTE | 2020-03-28 23:48 | PC.NURSE ---
COAL GETTER at bedside discussing results and plan of care.
[2020-03-28 23:51] VITALS: BP 139/87; PULSE 82; RESP 16
--- NOTE | 2020-03-28 23:54 | PC.NURSE ---
Pt reports some relief of pain, states her pain has decreased to a 6/10. Pt aware of pending DC. IV removed. VSS. Awaiting paperwork.
[2020-03-29] MEDS: Phenazopyridine HCL 200 MG TABLET PO (00:03)
--- NOTE | 2020-03-29 00:04 | PC.NURSE ---
Pt medicated per MAR with PO medications.
== END 2020-03-29 01:01 | disposition home or self-care (01) ==
PROVIDERS: Emergency Provider Emergency Medicine; PCP Family Medicine
DX: N83.202 Unspecified ovarian cyst, left side (principal); N30.01 Acute cystitis with hematuria; I10 Essential (primary) hypertension; F17.210 Nicotine dependence, cigarettes, uncomplicated
CPT/HCPCS: 36415; 74177; 80053; 81001; 81025; 85025; 87086; 96361; 96374; 96375; 96376; 99284; J1885; J2405; Q9967

== ENCOUNTER 2020-06-23 08:20 | Outpatient (REF) | payer MEDICARE, MEDICAID, SELFPAY ==
--- NOTE | ~2020-06-23 | US_ITS ---
EXAMINATION: US PELVIS COMPLETE CLINICAL INFORMATION: Heterogeneous uterus. COMPARISON: None TECHNIQUE: Transabdominal and transvaginal ultrasound of the pelvis is performed. FINDINGS: The uterus is anteverted and anteflexed measuring 8.5 cm in length, 4.5 cm in AP and 6.6 cm in transverse dimension. The uterus is heterogeneous. There is no focal lesion seen. Right ovary measures 2.9 x 2.0 x 1.9 cm and volume 5.8 mL. The ovary appears unremarkable. Previously it measured 3.1 x 2.1 x 1.8 cm. The left ovary measures 3.1 x 2.1 x 2.3 cm and volume 7.8 mL. Previously it measured 6.7 x 3.0 x 3.9 cm. There is no free fluid in cul-de-sac. US/US pelvic complete IMPRESSION: Slightly heterogenous uterus but otherwise unremarkable pelvic ultrasound.
--- NOTE | ~2020-06-23 | US_ITS ---
EXAMINATION: US PELVIS COMPLETE CLINICAL INFORMATION: Heterogeneous uterus. COMPARISON: None TECHNIQUE: Transabdominal and transvaginal ultrasound of the pelvis is performed. FINDINGS: The uterus is anteverted and anteflexed measuring 8.5 cm in length, 4.5 cm in AP and 6.6 cm in transverse dimension. The uterus is heterogeneous. There is no focal lesion seen. Right ovary measures 2.9 x 2.0 x 1.9 cm and volume 5.8 mL. The ovary appears unremarkable. Previously it measured 3.1 x 2.1 x 1.8 cm. The left ovary measures 3.1 x 2.1 x 2.3 cm and volume 7.8 mL. Previously it measured 6.7 x 3.0 x 3.9 cm. There is no free fluid in cul-de-sac. US/US transvaginal IMPRESSION: Slightly heterogenous uterus but otherwise unremarkable pelvic ultrasound.
== END 2020-06-23 08:21 | disposition home or self-care (01) ==
LOC: HO.US 08:20
PROVIDERS: PCP Family Medicine; Visit Provider Obstetrics & Gynecology
DX: N83.292 Other ovarian cyst, left side (principal); N73.0 Acute parametritis and pelvic cellulitis
CPT/HCPCS: 76830; 76856

== ENCOUNTER → 2020-07-07 09:03 | Outpatient (BNVA) | payer MEDICARE, MEDICAID, SELFPAY | PROVIDERS: PCP Family Medicine; Visit Provider Obstetrics & Gynecology | CPT/HCPCS: Q3014 ==

== ENCOUNTER 2020-09-29 11:19 | Emergency (ER) | payer MEDICARE, MEDICAID, SELFPAY ==
[2020-09-29 11:30] VITALS: BP 149/98; PULSE 84; RESP 18; TEMP 37.1; O2SAT 98; BMI 41.3
[2020-09-29 12:05] LABS: COVID-19 Test Negative (Negative); IDNOW Serial# 08D9AD1C
--- NOTE | 2020-09-29 12:11 | ED_ITS ---
HPI - URI/Sore Throat General Chief Complaint: General Medical Stated Complaint: flu like symptoms Time Seen by Provider: 09/29/20 11:52 Source: patient Mode of arrival: ambulatory Limitations: no limitations History of Present Illness HPI Narrative: 30-year-old female with a past medical history of hypertension, Brando's thyroiditis, deafness in right ear, ovarian cyst and chronic pelvic pain presenting to the ED with URI symptoms which include intermittent headaches, nasal congestion, runny nose, sinus pain, dry cough and diarrhea for the past few days worse today. Reports she is still tolerating p.o. although everything she eats comes out right away with diarrhea. Denies any fevers, neck pain/stiffness, chest pain or shortness of breath, nausea/vomiting, sore throat, abdominal pain, back pain, dysuria, black or bloody stools, constipation, recent travel or any other symptoms complaints or concerns at this time. Reports that she is not vaccinated to COVID. Denies recent travel. Her daughter has similar symptoms and her symptoms started 1st. MD elicited complaint: cough, sore throat, rhinorrhea, nasal congestion and sinus pain Onset (ago): day(s) (few days worse today) Consistency: constant and progressively worsening Severity: moderate Description of mucous: clear, watery and yellow Able to tolerate fluids by mouth: Yes Exacerbating factors: nothing Relieving factors: nothing Context: sick contacts (daughter with similar symptoms ) Associated symptoms: headache and diarrhea Treatments prior to arrival: none Related Data Home Medications Medication Instructions Recorded Confirmed levothyroxine 75 mcg tablet 75 mcg PO DAILY 03/26/20 03/26/20 loratadine 10 mg tablet 10 mg PO DAILY 07/07/20 Previous Rx's Medication Instructions Recorded ibuprofen 600 mg PO Q8H PRN #10 tab 03/23/20 levofloxacin 500 mg PO DAILY #7 tab 03/23/20 metronidazole [Flagyl] 500 mg PO BID #14 tab 03/23/20 ondansetron HCl [Zofran] 4 mg PO Q6H PRN #14 tab 03/23/20 ondansetron HCl [Zofran] 4 mg PO Q8H PRN #14 tab 03/28/20 phenazopyridine [Pyridium] 200 mg PO TID PRN #6 tab 03/28/20 sulfamethoxazole-trimethoprim 1 tab PO Q12H 3 Days #6 tab 03/28/20 [Bactrim DS] tramadol 50 mg PO BID PRN #3 tab 03/28/20 medroxyprogesterone 10 mg tablet 10 mg PO DAILY 10 Days #30 tab 07/07/20 acetaminophen [Tylenol Extra 1,000 mg PO QID PRN #14 tab 09/29/20 Strength] azithromycin See Rx Instructions .ROUTE 09/29/20 .COMPLEX #6 tab vkiqntpxuh-uvvntthhjsdlm-xeix 1 cap PO Q8H PRN #10 cap 09/29/20 [Fioricet] ibuprofen 800 mg PO Q8H PRN #14 tab 09/29/20 Allergies Allergy/AdvReac Type Severity Reaction Status Date / Time ventura Allergy Severe ANAPHYLAXIS Verified 07/07/20 09:04 soy [Soy] Allergy Severe ANAPHYLAXIS Verified 07/07/20 09:04 amoxicillin [Amoxicillin] Allergy Intermediate HIVES Verified 07/07/20 09:04 Amoxicillin Allergy Unknown anaphylaxis Uncoded 10/13/11 00:00 From Prozac AdvReac Intermediate HALLUCINATI Uncoded 11/29/19 16:43 ONS Review of Systems Review of Systems: Constitutional : Positive chills/fatigue/malaise, No Fever ENT/Mouth : Positive runny nose/nasal congestion, No sore throat Eyes: No Discharge Cardiovascular : No Chest Pain, No SOB Respiratory : Positive cough, No Sputum, No Wheezing, No Smoke Exposure, No Dyspnea Gastrointestinal : No Nausea, No Vomiting, No Diarrhea Genitourinary : No irregular bleeding, No Dysuria, No Urinary Frequency, No Hematuria, No Urinary Incontinence, No Urgency, No Flank Pain, Musculoskeletal : No Myalgia Skin : No rash Neuro : Positive Headache Yes all other systems are reviewed and are negative [facility] Past Medical History Attestation statement: The following information was validated with the patient. Medical History Deafness in right ear Brando thyroiditis, fibrous variant Hypertension Surgical History H/O wrist surgery Hx of section Hx of tonsillectomy Hx of tubal ligation Social History Social History Alcohol intake: never Cigarettes Per Day: 2 Advance Directives: Yes Advance Directives Information Provided: Yes Advance Directives on File: No Patient : No Sexual orientation: Straight/Heterosexual Physical Exam Vital Signs: Vital Signs: Last Vital Signs Temp 98.7 F 09/29/20 11:30 Pulse 84 09/29/20 11:30 Resp 18 09/29/20 11:30 BP 149/98 H 09/29/20 11:30 Pulse Ox 98 09/29/20 11:30 Body Mass Index 41.3 vital signs have been reviewed as normal and appeared to be correct. Blood pressure normal. Heart rate normal. Respiration rate normal. Temperature normal. Oxygen saturation normal. Appearance: Alert. Oriented X3. No acute distress. Head: Normal external exam. Normocephalic. Atraumatic. Eyes: PERRLA. EOMI. Conjunctiva and sclera normal. Eyelids normal. ENT: EAC normal. TM's Normal. Patient with tenderness to palpation to frontal and ethmoid sinuses. Pharynx normal. Uvula midline. Moist mucous membranes. No trismus noted. No drooling noted. No muffled voice noted. Neck: Normal inspection. Neck supple. FROM. No adenopathy. Thyroid Normal. No meningeal signs. No neck mass noted. CVS: Normal heart rate and rhythm. Heart sound normal. Pulses normal throughout. No murmurs/rales/gallops. Respiratory: No respiratory distress. Painless inspiration. Breath sounds normal. No wheezes/rales/rhonchi noted. Chest nontender. No accessory muscle usage noted or decreased air movement noted. Abdomen: Soft and nontender. Bowel sounds normal in all 4 quadrants. No distention noted. No organomegaly noted. No visible injury noted. Back: Full range of motion noted. No rashes/lesion/induration/fluctuance or signs of infection noted. Skin: Skin warm and dry. Normal skin color. Normal skin turgor. No rashes/lesions/lacerations noted. Extremities: Extremities exhibit normal range of motion. Extremities nontender. Neuro: Oriented X 3. No motor deficit. No sensory deficit. Reflexes normal. Normal steady gait. No focal neuro deficits noted. Vascular: + radial pulses/+ 2 distal pedal pulses/+2 dorsalis pedis b/l. Normal cap refill. No cyanosis noted to upper extremity nails and lower extremity toes nails. Course Course Course Narrative: 30-year-old female presenting to the ED with URI symptoms for the past few days worse today. Daughter started with similar symptoms 1st her daughter is 10 years old. They are tolerating p.o. they are not vaccinated to COVID. No recent travel. On exam patient is alert and oriented x3. Neck is soft nontender with full range of motion and supple. No signs of meningitis. No signs of dehydration. Moist mucous membranes. Lungs clear to auscultation. CV RRR. Abdomen is soft and nontender. No rashes noted. Rapid COVID negative although will obtain a COVID/RSV/flu swab since her daughter is 10 and will DC home with antibiotics and symptomatic treatment and instructions return if any new or worsening symptoms to self isolate will call them with either negative or positive results for COVID/RSV/flu in 2 hours patient and daughter at bedside understand and agreed this plan. MDM - URI/Sore Throat Medical Records Attestation: I reviewed the patient's medical records. Lab Data Attestation: I reviewed the patient's lab results. Labs: Lab Results 09/29/20 Range/Units 11:38 COVID-19 ([facility]) Negative (Negative) COVID-19 Clin Com See Note Discharge Plan Discharge Clinical Impression: Upper respiratory infection Patient Disposition: Home, Self-Care Instructions: Upper Respiratory Infection (ED), COVID-19 (Coronavirus Disease 2019) (ED) Additional Instructions: Based on your symptoms and history we have sent a COVID-19. Although your RESULT IS PENDING at this time. RESULTS should return within 2-4 hours. At this time you will be contacted with either NEGATIVE OR POSITIVE results. -Please wait until we contact you for your results. At this time you will be okay for discharge. Please plan for self quarantine for up to 14 days. Do not expose yourself to others. You may not go to work. If testing does come back negative you may return to activities as long as you are no longer having any symptoms for at least 3 days. Please continue to follow cold instructions and wash your hands frequently. You may take Tylenol as directed on the bottle for pain or fever. Patient seen in the emergency department on 09/29/20 and should be excused from work until negative test results AND until 72 hours without any symptoms AND at least 7-10 days have passed since symptoms first appeared or since last exposure to COVID-19 positive patient CDC Guidelines for home isolation: - Stay away from others - WEAR A MASK if you are sick AND STAY HOME - Cover your mouth and nose with a tissue when you cough or sneeze. Dispose of tissues in a lined trash can and wash your hands immediately with soap and water for at least 20 seconds. If soap and water are not available, clean hands with alcohol-based hand diploma dental assistant that contains at least 60% alcohol. - Clean your hands often with soap and water for at least 20 seconds - Avoid touching your eyes, nose and mouth with unwashed hands - Do not share dishes, drinking glasses, cups, eating utensils, towels, or bedding with other people in your home. After using these items, wash them thoroughly with soap and water or put in the electrical tech/project manager. - Clean high-touch surfaces in your isolation area ( sick room and bathroom) every day; let a caregiver clean and disinfect high-touch surfaces in other areas of the home. Clean the area or item with soap and water or another detergent if it is dirty. Then, use a household disinfectant. - Limit contact with pets and animals: If you must care for a pet, wash your hands before and after interacting with them). Prescriptions: New utsfkrnjju-deytevvenivib-kgre [Fioricet] 50-300-40 mg capsule 1 cap PO Q8H PRN (Reason: pain) Qty: 10 RF: 0 azithromycin 250 mg tablet See Rx Instructions .ROUTE .COMPLEX Qty: 6 RF: 0 ibuprofen 800 mg tablet 800 mg PO Q8H PRN (Reason: pain) Qty: 14 RF: 0 acetaminophen [Tylenol Extra Strength] 500 mg tablet 1,000 mg PO QID PRN (Reason: fever or pain) Qty: 14 RF: 0 No Action ibuprofen 600 mg tablet 600 mg PO Q8H PRN (Reason: pain) Qty: 10 RF: 0 metronidazole [Flagyl] 500 mg tablet 500 mg PO BID Qty: 14 RF: 0 levofloxacin 500 mg tablet 500 mg PO DAILY Qty: 7 RF: 0 ondansetron HCl [Zofran] 4 mg tablet 4 mg PO Q6H PRN (Reason: nausea and vomiting) Qty: 14 RF: 0 sulfamethoxazole-trimethoprim [Bactrim DS] 800-160 mg tablet 1 tab PO Q12H 3 Days Qty: 6 RF: 0 phenazopyridine [Pyridium] 200 mg tablet 200 mg PO TID PRN (Reason: pain) Qty: 6 RF: 0 ondansetron HCl [Zofran] 4 mg tablet 4 mg PO Q8H PRN (Reason: nausea and vomiting) Qty: 14 RF: 0 tramadol 50 mg tablet 50 mg PO BID PRN (Reason: pain) Qty: 3 RF: 0 levothyroxine 75 mcg tablet 75 mcg PO DAILY RF: 0 loratadine [Claritin] 10 mg tablet 10 mg PO DAILY RF: 0 medroxyprogesterone [Provera] 10 mg tablet 10 mg PO DAILY 10 Days Qty: 30 RF: 1 Referrals: Jonathon García MD [Primary Care Provider] - 2 days Stand Alone Forms: Work/School Release Print Language: Khmer
[2020-09-29 13:02] LABS: Influenza A PCR NEGATIVE (Negative); Influenza B PCR NEGATIVE (Negative); Resp Syncy Virus RNA Qual PCR NEGATIVE (Negative); SARS COV2 PCR INHOUSE NEGATIVE (Negative)
== END 2020-09-29 12:48 | disposition home or self-care (01) ==
PROVIDERS: Physician Assistant Medical; Emergency Provider Emergency Medicine; PCP Family Medicine
DX: J06.9 Acute upper respiratory infection, unspecified (principal); I10 Essential (primary) hypertension; Z79.899 Other long term (current) drug therapy; Z20.822 Contact with and (suspected) exposure to COVID-19
CPT/HCPCS: 0241U; 36415; 87635; 99283

== ENCOUNTER 2020-11-28 08:58 | Outpatient (REF) | payer MEDICARE, MEDICAID, SELFPAY ==
[2020-11-28 14:38] LABS: CT PCR NOT DETECTED (Not Detect.); NG PCR NOT DETECTED (Not Detect.)
== END 2020-11-28 08:59 | disposition home or self-care (01) ==
LOC: HO.LAB 08:58
PROVIDERS: PCP Family Medicine; Visit Provider Advanced Practice Midwife
DX: Z01.419 Encounter for gynecological examination (general) (routine) without abnormal findings (principal); E66.01 Morbid (severe) obesity due to excess calories; E28.2 Polycystic ovarian syndrome; N90.89 Other specified noninflammatory disorders of vulva and perineum; F17.210 Nicotine dependence, cigarettes, uncomplicated; Z20.2 Contact with and (suspected) exposure to infections with a predominantly sexual mode of transmission; Z68.41 Body mass index [BMI] 40.0-44.9, adult
CPT/HCPCS: 87491; 87591; 88142

== ENCOUNTER 2020-12-06 08:16 | Emergency (ER) | payer MEDICARE, MEDICAID, SELFPAY ==
[2020-12-06 08:18] VITALS: BP 156/95; PULSE 88; RESP 16; TEMP 36.1; O2SAT 97; BMI 34.6
--- NOTE | 2020-12-06 09:21 | ED_ITS ---
HPI - Headache General Chief Complaint: Headache Stated Complaint: headache Time Seen by Provider: 12/06/20 09:18 History of Present Illness HPI Narrative: Patient is a 30-year-old female presents today with a history of migraine headaches. The headache is on both sides. Associated with nausea. Worsened with light. Worsened with [place]. Patient from home. No focal weakness. Pain is similar to previous. No chest pain or shortness of breath no diaphoresis. No fever no chills. Related Data Home Medications Medication Instructions Recorded Confirmed levothyroxine 75 mcg tablet 75 mcg PO DAILY 03/26/20 03/26/20 loratadine 10 mg tablet (Claritin) 10 mg PO DAILY 07/07/20 Previous Rx's Medication Instructions Recorded ibuprofen 600 mg tablet 600 mg PO Q8H PRN #10 tab 03/23/20 levofloxacin 500 mg tablet 500 mg PO DAILY #7 tab 03/23/20 metronidazole 500 mg tablet 500 mg PO BID #14 tab 03/23/20 (Flagyl) ondansetron HCl 4 mg tablet 4 mg PO Q6H PRN #14 tab 03/23/20 (Zofran) ondansetron HCl 4 mg tablet 4 mg PO Q8H PRN #14 tab 03/28/20 (Zofran) phenazopyridine 200 mg tablet 200 mg PO TID PRN #6 tab 03/28/20 (Pyridium) sulfamethoxazole 800 1 tab PO Q12H 3 Days #6 tab 03/28/20 mg-trimethoprim 160 mg tablet (Bactrim DS) tramadol 50 mg tablet 50 mg PO BID PRN #3 tab 03/28/20 medroxyprogesterone 10 mg tablet 10 mg PO DAILY 10 Days #30 tab 07/07/20 (Provera) acetaminophen 500 mg tablet 1,000 mg PO QID PRN #14 tab 09/29/20 (Tylenol Extra Strength) azithromycin 250 mg tablet See Rx Instructions .ROUTE 09/29/20 .COMPLEX #6 tab zgmvcrxnem-injknrihuhvyr-frlisqsg 1 cap PO Q8H PRN #10 cap 09/29/20 50 mg-300 mg-40 mg capsule (Fioricet) ibuprofen 800 mg tablet 800 mg PO Q8H PRN #14 tab 09/29/20 ibuprofen 400 mg tablet 400 mg PO Q6H PRN #20 tab 09/25/21 ondansetron 4 mg disintegrating 4 mg PO TID PRN 5 Days #10 tab 12/06/20 tablet Allergies Allergy/AdvReac Type Severity Reaction Status Date / Time ventura Allergy Severe ANAPHYLAXIS Verified 11/28/20 09:46 soy [Soy] Allergy Severe ANAPHYLAXIS Verified 11/28/20 09:46 amoxicillin [Amoxicillin] Allergy Intermediate HIVES Verified 11/28/20 09:46 Amoxicillin Allergy Unknown anaphylaxis Uncoded 10/13/11 00:00 From Prozac AdvReac Intermediate HALLUCINATI Uncoded 11/29/19 16:43 ONS Review of Systems Review of Systems: No chest pain or shortness of breath. No focal weakness Yes all other systems are reviewed and are negative [facility] Past Medical History Attestation statement: The following information was validated with the patient. Source: unable to obtain Medical History Deafness in right ear Brando thyroiditis, fibrous variant Hypertension Morbid obesity with body mass index (BMI) of 40.0 to 44.9 in adult PCOS (polycystic ovarian syndrome) Surgical History H/O wrist surgery Hx of section Hx of tonsillectomy Hx of tubal ligation Social History Social History Alcohol intake: current Alcohol intake frequency: holidays/special occasions only Alcohol type: wine Patient Tobacco Use Status: Current everyday Tobacco user Cigarettes Per Day: 2 Advance Directives: No Advance Directives Information Provided: No Sexual orientation: Straight/Heterosexual Physical Exam Vital Signs: Vital Signs: Last Vital Signs Temp 98.6 F 12/06/20 09:59 Pulse 80 12/06/20 09:59 Resp 18 12/06/20 09:59 BP 113/66 12/06/20 09:59 Pulse Ox 98 12/06/20 09:59 Body Mass Index 34.6 Appearance: Alert. Oriented X3. No acute distress. Eyes: Pupils equal, round and reactive to light. ENT: Pharynx normal. Neck: Normal inspection. Neck supple. No lymph nodes noted. No crepitus CVS: Normal heart rate and rhythm. Pulses normal. Normal S1 and S2 Respiratory: No respiratory distress. Breath sounds normal. No Wheezing. No rales Abdomen: Soft and nontender. No rigidity. No distention. good BS x4 Skin: Skin warm and dry. Normal skin color. Normal skin turgor. Extremities: No lower extremity edema. Neurovascular intact to all extremities. No Lacerations. No Rash Neuro: Oriented X 3. No motor deficit. No sensory deficit. Moving all exter mities. No slurred speech MDM - Headache MDM Narrative Medical decision making narrative: Patient's electrolytes unremarkable. Well- appearing no distress. Given migraine treatment with good symptomatic relief. History not consistent with subarachnoid hemorrhage. Neurologically intact. Currently in stable condition with discharge home Differential Diagnosis Differential diagnosis: Likely migraine, tension headache, subarachnoid he morrhage, headache, meningitis, sinusitis and postconcussion syndrome Lab Data Attestation: I reviewed the patient's lab results. Result diagrams: 12/06/20 09:43 12/06/20 09:43 Labs: Lab Results 12/06/20 12/06/20 Range/Units 09:43 09:43 WBC 6.1 (4.8-10.8) X10*3/uL RBC 4.61 (4.20-5.50) X10*6/uL Hgb 13.3 (12.0-16.0) g/dl Hct 38.9 (37-47) % MCV 84.4 (80-98) fL MCH 28.9 (27.0-33.0) pg MCHC 34.2 (31.0-35.0) g/dl RDW 12.3 (11.0-16.0) % Plt Count 198 (160-400) X10*3/uL MPV 10.8 (9.4-12.3) fL Immature Gran % (Auto) 0.3 (0.0-0.4) % Neut % (Auto) 64.6 (45-73) % Lymph % (Auto) 25.0 (20-40) % Geary % (Auto) 6.0 (2-11) % Eos % (Auto) 3.6 (0-4) % Baso % (Auto) 0.5 (0-2) % Lymph # (Auto) 1.5 (1.2-4.9) X10*3/uL Geary # (Auto) 0.4 (0.1-1.2) X10*3/uL Eos # (Auto) 0.2 (0.0-0.4) X10*3/uL Baso # (Auto) 0.0 (0.0-0.2) X10*3/uL Abs Immat Gran (auto) 0.02 (0.00-0.03) X10*3/uL Absolute Neuts (auto) 3.9 (2.0-8.3) X10*3/uL Absolute Nucleated RBC 0.000 (0.0-0.012) X10*3/uL Nucleated RBC % (auto) 0.0 (0.0-0.2) /100WBC Sodium 136 (135-145) mmol/L Potassium 4.0 (3.3-5.1) mmol/L Chloride 107 (96-108) mmol/L Carbon Dioxide 20 L (22-29) mmol/L Anion Gap 13 (12-20) BUN 9 (9-16) mg/dL Creatinine 0.70 (0.5-1.4) mg/dL Estim Creat Clear Calc 135.8 Estimated GFR > 60 Random Glucose 87 (60-115) mg/dL Calcium 9.2 (8.4-10.2) mg/dL Discharge Plan Discharge Clinical Impression: Migraine, Migraine, Tension headache Patient Disposition: Home, Self-Care Instructions: Migraine Headache (ED) Prescriptions: New ibuprofen 400 mg tablet 400 mg PO Q6H PRN (Reason: pain) Qty: 20 RF: 0 ondansetron 4 mg tablet,disintegrating 4 mg PO TID PRN (Reason: nausea and vomiting) 5 Days Qty: 10 RF: 0 No Action ibuprofen 600 mg tablet 600 mg PO Q8H PRN (Reason: pain) Qty: 10 RF: 0 metronidazole [Flagyl] 500 mg tablet 500 mg PO BID Qty: 14 RF: 0 levofloxacin 500 mg tablet 500 mg PO DAILY Qty: 7 RF: 0 ondansetron HCl [Zofran] 4 mg tablet 4 mg PO Q6H PRN (Reason: nausea and vomiting) Qty: 14 RF: 0 sulfamethoxazole-trimethoprim [Bactrim DS] 800-160 mg tablet 1 tab PO Q12H 3 Days Qty: 6 RF: 0 phenazopyridine [Pyridium] 200 mg tablet 200 mg PO TID PRN (Reason: pain) Qty: 6 RF: 0 ondansetron HCl [Zofran] 4 mg tablet 4 mg PO Q8H PRN (Reason: nausea and vomiting) Qty: 14 RF: 0 tramadol 50 mg tablet 50 mg PO BID PRN (Reason: pain) Qty: 3 RF: 0 yzyuzzpyzy-ciwepuvypuxuy-kicq [Fioricet] 50-300-40 mg capsule 1 cap PO Q8H PRN (Reason: pain) Qty: 10 RF: 0 azithromycin 250 mg tablet See Rx Instructions .ROUTE .COMPLEX Qty: 6 RF: 0 ibuprofen 800 mg tablet 800 mg PO Q8H PRN (Reason: pain) Qty: 14 RF: 0 acetaminophen [Tylenol Extra Strength] 500 mg tablet 1,000 mg PO QID PRN (Reason: fever or pain) Qty: 14 RF: 0 levothyroxine 75 mcg tablet 75 mcg PO DAILY RF: 0 loratadine [Claritin] 10 mg tablet 10 mg PO DAILY RF: 0 medroxyprogesterone [Provera] 10 mg tablet 10 mg PO DAILY 10 Days Qty: 30 RF: 1
[2020-12-06] MEDS: diphenhydrAMINE HCL 50 MG/ML VIAL 25 MG IVPUSH (09:45)
[2020-12-06] MEDS: Prochlorperazine Edisylate 10 MG/2 ML VIAL IVPUSH (09:45)
[2020-12-06] MEDS: Ketorolac Tromethamine 30 MG/ML VIAL IVPUSH (09:45)
[2020-12-06 09:49] LABS: MANUAL DIFF FLAG NO
[2020-12-06 09:52] LABS: Basophils Percent Auto 0.5 % (0-2); Eosinophils Absolute Auto 0.2 X10*3/uL (0.0-0.4); Eosinophils Percent Auto 3.6 % (0-4); Hematocrit 38.9 % (37-47); Hemoglobin 13.3 g/dl (12.0-16.0); Imm Gran Abs Auto 0.02 X10*3/uL (0.00-0.03); Imm Gran Pct Auto 0.3 % (0.0-0.4); Lymphocytes Absolute Auto 1.5 X10*3/uL (1.2-4.9); Mean Corpuscular HGB Conc 34.2 g/dl (31.0-35.0); Mean Corpuscular Hemoglobin 28.9 pg (27.0-33.0); Mean Corpuscular Volume 84.4 fL (80-98); Mean Platelet Volume 10.8 fL (9.4-12.3); Monocytes Absolute Auto 0.4 X10*3/uL (0.1-1.2); Neutrophils Absolute Auto 3.9 X10*3/uL (2.0-8.3); Neutrophils Percent Auto 64.6 % (45-73); Platelet Count 198 X10*3/uL (160-400); Red Blood Count 4.61 X10*6/uL (4.20-5.50); Red Cell Distribution Width 12.3 % (11.0-16.0); White Blood Count 6.1 X10*3/uL (4.8-10.8)
[2020-12-06] MEDS: 0.9 % Sodium Chloride 1,000 ML 999 ML IV (09:53)
[2020-12-06 09:59] VITALS: BP 113/66; PULSE 80; RESP 18; TEMP 37; O2SAT 98
[2020-12-06 10:08] LABS: Anion Gap 13 (12-20); Blood Urea Nitrogen 9 mg/dL (9-16); Calcium 9.2 mg/dL (8.4-10.2); Carbon Dioxide 20 mmol/L (22-29); Chloride 107 mmol/L (96-108); Creatinine Clr Calc Pharmacy 135.8; Estimated Glomerular Filt Rate > 60; Glucose Random 87 mg/dL (60-115); Sodium 136 mmol/L (135-145)
--- NOTE | 2020-12-06 10:19 | PC.NURSE ---
pt alert and oriented, vss. pt states she woke up this morning with swollen face and pounding headache with associated nausea. pt has history of migraines and states she had similar symptoms in the past. No other symptoms reported. An iv was established, meds given and fluids hung as documented. will continue to monitor.
== END 2020-12-06 10:58 | disposition home or self-care (01) ==
PROVIDERS: Emergency Provider Emergency Medicine Emergency Medical Services; PCP Family Medicine
DX: G43.909 Migraine, unspecified, not intractable, without status migrainosus (principal); Z79.899 Other long term (current) drug therapy; F17.210 Nicotine dependence, cigarettes, uncomplicated; Z71.6 Tobacco abuse counseling
CPT/HCPCS: 36415; 80048; 85025; 96361; 96374; 96375; 99284; J1200; J1885

== ENCOUNTER 2020-12-11 08:29 | Outpatient (REF) | payer MEDICARE, MEDICAID, SELFPAY | END 2020-12-11 08:30 | disposition home or self-care (01) | LOC: HO.LAB 08:29 | PROVIDERS: PCP Family Medicine; Visit Provider Internal Medicine | DX: Z20.822 Contact with and (suspected) exposure to COVID-19 (principal) | CPT/HCPCS: C9803; U0003; U0005 ==

== ENCOUNTER 2020-12-30 07:40 | Outpatient (REF) | payer MEDICARE, MEDICAID, SELFPAY | END 2020-12-30 07:41 | disposition home or self-care (01) | LOC: HO.LAB 07:40 | PROVIDERS: PCP Family Medicine; Visit Provider Obstetrics & Gynecology | DX: N90.89 Other specified noninflammatory disorders of vulva and perineum (principal) | CPT/HCPCS: 56605; 88305; 99212 ==

== ENCOUNTER → 2020-12-31 13:02 | Outpatient (BNVA) | payer MEDICARE, MEDICAID, SELFPAY | PROVIDERS: PCP Family Medicine; Visit Provider Obstetrics & Gynecology | DX: N92.1 Excessive and frequent menstruation with irregular cycle (principal) | CPT/HCPCS: Q3014 ==

== ENCOUNTER → 2021-01-12 13:50 | Outpatient (BNVA) | payer MEDICARE, MEDICAID, SELFPAY | PROVIDERS: Visit Provider Obstetrics & Gynecology | CPT/HCPCS: Q3014 ==

== ENCOUNTER → 2021-01-13 08:55 | Outpatient (BNVA) | payer MEDICARE, MEDICAID, SELFPAY | PROVIDERS: Visit Provider Obstetrics & Gynecology | DX: N90.89 Other specified noninflammatory disorders of vulva and perineum (principal) | CPT/HCPCS: 99212 ==

== ENCOUNTER 2021-01-23 08:06 | Day surgery (SDC) | payer MEDICARE, MEDICAID, SELFPAY ==
[2021-01-23] VITALS (7 sets, daily range): BP systolic 120–154; BP diastolic 78–89; PULSE 60–97; RESP 16–18; TEMP 36.3–36.4; O2SAT 96–100; BMI 39.0
[2021-01-23 08:38] LABS: UPreg QC Valid YES
[2021-01-23 08:41] LABS: Urine Pregnancy NEGATIVE (NEGATIVE)
--- NOTE | 2021-01-23 08:45 | HO.ANESPROP2 ---
[facility] Active Problems Active Problems: All Active Problems (Updated 01/13/21 @ 09:09 by Hadley Schmitz MD) Lesion of vulva (Acute) Morbid obesity with body mass index (BMI) of 40.0 to 44.9 in adult (Acute) PCOS (polycystic ovarian syndrome) (Acute) Hypertension (Acute) Brando thyroiditis, fibrous variant (Acute) Deafness in right ear (Acute) Ovarian cyst rupture (Acute) Metrorrhagia (Acute) Chronic female pelvic pain (Acute) PID (acute pelvic inflammatory disease) (Acute) Complex cyst of left ovary (Acute) Past Medical History Medical History Deafness in right ear Brando thyroiditis, fibrous variant Hypertension Morbid obesity with body mass index (BMI) of 40.0 to 44.9 in adult PCOS (polycystic ovarian syndrome) Surgical History Surgical History H/O wrist surgery Hx of section Hx of tonsillectomy Hx of tubal ligation Social History Social History Alcohol intake: current Alcohol intake frequency: holidays/special occasions only Alcohol type: wine Patient Tobacco Use Status: Current everyday Tobacco user Cigarettes Per Day: 2 Use of substances other than those prescribed or required for medical reasons: No Are you DNR?: No Advance Directives: No Advance Directives Information Provided: Yes Sexual orientation: Straight/Heterosexual Meds Allergies Allergy/AdvReac Type Severity Reaction Status Date / Time ventura Allergy Severe ANAPHYLAXIS Verified 12/30/20 08:40 soy [Soy] Allergy Severe ANAPHYLAXIS Verified 12/30/20 08:40 amoxicillin [Amoxicillin] Allergy Intermediate HIVES Verified 12/30/20 08:40 Amoxicillin Allergy Unknown anaphylaxis Uncoded 10/13/11 00:00 From Prozac AdvReac Intermediate HALLUCINATI Uncoded 11/29/19 16:43 ONS Home Medications Medication Instructions Recorded Confirmed Last Taken Type levothyroxine 75 mcg tablet 75 mcg PO DAILY 03/26/20 01/15/21 01/23/21 History Exam Exam Date and Time: January 23, 2021 0845 Height,Weight and Vital Signs: Height 5 ft Weight 90.718 kg Last Vital Signs Temp 97.5 F 01/23/21 08:31 Pulse 81 01/23/21 08:31 Resp 18 01/23/21 08:31 BP 146/87 H 01/23/21 08:31 Pulse Ox 98 01/23/21 08:31 Pertinent Lab Results Pertinent Lab Results: Laboratory Tests 01/23/21 06:21 Urine Test NEGATIVE Airway Mallampati Class: I TM Dist: >3cm Neck ROM: Full
[2021-01-23] MEDS: Lactated Ringers 1,000 ML 100 ML IVCONT (08:53)
--- NOTE | 2021-01-23 09:24 | MHC.SHP ---
Pre-Procedural Eval Section A Date of Service: 01/23/21 The patient is an INPATIENT: No Changes since office visit: No Cold of Flu in the past 2 weeks, No New Medical Problems, No Changes in Medication and No Patient answered all questions The History & Physical has been completed within 30 days and I have reviewed it.: Yes Section B Chief Complaint: vulva lesion Allergies: Allergies Allergy/AdvReac Type Severity Reaction Status Date / Time ventura Allergy Severe ANAPHYLAXIS Verified 12/30/20 08:40 soy [Soy] Allergy Severe ANAPHYLAXIS Verified 12/30/20 08:40 amoxicillin [Amoxicillin] Allergy Intermediate HIVES Verified 12/30/20 08:40 Amoxicillin Allergy Unknown anaphylaxis Uncoded 10/13/11 00:00 From Prozac AdvReac Intermediate HALLUCINATI Uncoded 11/29/19 16:43 ONS Plan Diagnosis/Plan: Unchanged I have reviewed the history and physical and performed a pertinent physical examination on my patient. No changes have occurred unless specified.
--- NOTE | 2021-01-23 10:02 | PM.OP ---
Brief Operative Note Date of Service: 01/23/21 Pre-op diagnosis: Left mons pubis lesion Post-op diagnosis: same Procedure: Excision of left mons pubis lesion Surgeon: Hadley Schmitz MD Anesthesia: GLMA Was an Tyre Finisher And Examiner used for this Procedure?: No Estimated blood loss (mL): 0 Pathology: other (Left mons pubis lesion) Condition: stable Disposition: PACU
--- NOTE | 2021-01-23 10:03 | P.OP_ITS ---
Operative Note Operative Note Date of Service: 01/23/21 Narrative: Preop diagnosis: Left months pubis lesion Operation: Excision of lesion on the left months pubis Postop diagnosis: The same Anesthesia: GLMA and local Complications: None Estimated blood loss: 0 cc Pathology: Left months pubis lesion Certified Genetic Counselor: None Procedure: The patient was put in the dorsal lithotomy position after given anesthesia, scrubbed and draped in usual sterile fashion. Left months pubis lesion was identified . Using an 11 blade, the lesion was cut with a small margin of normal looking skin around it, and the lesion was excised from the subq layer. Using 2 0 Vicryl the subcuticular layer was reapproximated and 4-0 Vicryl subcuticular sutures were used to approximate the skin. Hemostasis was assured. At the and of procedure 6 cc of Marcaine plain were injected in the subq layer.
== END 2021-01-23 11:40 | disposition home or self-care (01) ==
PROVIDERS: PCP Family Medicine; Visit Provider Obstetrics & Gynecology
PROC: (CPT 11422; principal; 2021-01-23 10:00)
DX: D28.0 Benign neoplasm of vulva (principal); E28.2 Polycystic ovarian syndrome; E06.3 Autoimmune thyroiditis; Z98.51 Tubal ligation status; I10 Essential (primary) hypertension; E66.01 Morbid (severe) obesity due to excess calories; Z68.41 Body mass index [BMI] 40.0-44.9, adult
CPT/HCPCS: 11422; 81025; 88305; 88312; J1100; J2250; J2405; J3010

== ENCOUNTER 2021-02-01 05:46 | Emergency (ER) | payer MEDICARE, MEDICAID, SELFPAY ==
[2021-02-01 05:49] VITALS: BP 135/72; PULSE 63; RESP 16; TEMP 36.7; O2SAT 98; BMI 41.0
[2021-02-01 05:56] VITALS: RESP 16
--- NOTE | 2021-02-01 06:41 | ED.WOUNDLAC ---
HPI - Wound/Laceration General Chief Complaint: Wound/Laceration Stated Complaint: Wound infection Time Seen by Provider: 02/01/21 06:12 Source: patient Mode of arrival: ambulatory Limitations: no limitations History of Present Illness HPI narrative: 30-year-old female who presents emergency department for evaluation drainage from a left groin surgical wound. Patient states she had a birthmark in her left lower groin area which was removed by approximately 1/2 weeks prior. She states the wound was closed with dissolvable sutures. She states that yesterday the wound was leaking this morning the wound opened up in lead to poor. She describes the fluid as a yellow clear fluid which did have an odor to it. She denied any systemic symptoms such as fever, chills, weakness or fatigue. Related Data Home Medications Medication Instructions Recorded Confirmed levothyroxine 75 mcg tablet 75 mcg PO DAILY 03/26/20 01/15/21 Allergies Allergy/AdvReac Type Severity Reaction Status Date / Time ventura Allergy Severe ANAPHYLAXIS Verified 12/30/20 08:40 soy [Soy] Allergy Severe ANAPHYLAXIS Verified 12/30/20 08:40 amoxicillin [Amoxicillin] Allergy Intermediate HIVES Verified 12/30/20 08:40 Amoxicillin Allergy Unknown anaphylaxis Uncoded 10/13/11 00:00 From Prozac AdvReac Intermediate HALLUCINATI Uncoded 11/29/19 16:43 ONS Review of Systems Review of Systems: Yes all other systems are reviewed and are negative [facility] Past Medical History [facility] Narrative: Social history: She smokes 2 cigarettes per day. She occasionally drinks alcohol. She denies drug use. Medical History Deafness in right ear Brando thyroiditis, fibrous variant Hypertension Morbid obesity with body mass index (BMI) of 40.0 to 44.9 in adult PCOS (polycystic ovarian syndrome) Surgical History H/O wrist surgery Hx of section Hx of tonsillectomy Hx of tubal ligation Social History Social History Alcohol intake: current Alcohol intake frequency: holidays/special occasions only Alcohol type: wine Patient Tobacco Use Status: Current everyday Tobacco user Cigarettes Per Day: 2 Advance Directives: No Patient : No Sexual orientation: Straight/Heterosexual Physical Exam Vital Signs: Vital Signs: Last Vital Signs Temp 98.0 F 02/01/21 05:49 Pulse 63 02/01/21 05:49 Resp 16 02/01/21 05:56 BP 135/72 02/01/21 05:49 Pulse Ox 98 02/01/21 05:49 Body Mass Index 41.0 Const: Other: Well-appearing female patient, very pleasant and cooperative, no distress. Orientation/consciousness: oriented to person and oriented to place HENMT: Head: Yes normocephalic and Yes atraumatic Resp: Effort & Inspection: normal respiratory effort Skin: Other: Patient's left groin area has a circular, open wound measuring approximately 1.5 cm in diameter, there are 3 dissolvable sutures noted in the wound, the wound appears to have granulation tissue developing, there is no purulent material, there is no surrounding erythema or increased warmth. Neuro: General: oriented to person and oriented to place Psych: Appearance: grossly normal Discharge Plan Discharge Clinical Impression: Seroma of musculoskeletal structure after musculoskeletal system procedure Patient Disposition: Home, Self-Care Additional Instructions: You developed a seroma that opened up the surgical incision and leaked. A seroma is a collection of fluid that occurs under a surgical incision after a surgical procedure. This does not occur all the time but is part of the healing process that then causes the surgical incision to break open There were 3 dissolvable stitches in the wound that I removed. The wound does not appear to be infected. The wound will heal slowly over time, sometimes, you need to discuss with your surgeon whether not this wound can be surgically closed again or if it just needs to be left alone and allowed to heal over time Apply bacitracin twice a day Keep the wound covered with a gauze pad. Watch for signs of infection which include redness, swelling, drainage of pus, red streaks going away from the wound, fever, chills, weakness. Follow-up with Dr. Schmitz in 2-4 days Please return to the emergency department if your symptoms get worse or if you develop any symptoms that are concerning to you. Prescriptions: No Action levothyroxine 75 mcg tablet 75 mcg PO DAILY RF: 0
[2021-02-01] MEDS: Bacitracin Oint 14 GM TUBE 1 APPL TOPICAL (07:00)
== END 2021-02-01 07:00 | disposition home or self-care (01) ==
PROVIDERS: Emergency Provider Emergency Medicine Emergency Medical Services; PCP Family Medicine
DX: M96.842 Postprocedural seroma of a musculoskeletal structure following a musculoskeletal system procedure (principal); Z79.899 Other long term (current) drug therapy
CPT/HCPCS: 99283; 99284

== ENCOUNTER → 2021-02-03 11:54 | Outpatient (BNVA) | payer MEDICARE, MEDICAID, SELFPAY | PROVIDERS: PCP Family Medicine; Visit Provider Obstetrics & Gynecology | DX: N90.89 Other specified noninflammatory disorders of vulva and perineum (principal) | CPT/HCPCS: Q3014 ==

== ENCOUNTER 2021-04-28 14:51 | Emergency (ER) | payer MEDICARE, MEDICAID, SELFPAY ==
[2021-04-28 16:14] VITALS: BP 139/77; PULSE 76; RESP 18; TEMP 36.7; O2SAT 97; BMI 39.0
[2021-04-28 16:36] LABS: MANUAL DIFF FLAG NO
[2021-04-28 16:39] LABS: Basophils Absolute Auto 0.1 X10*3/uL (0.0-0.2); Basophils Percent Auto 0.6 % (0-2); Eosinophils Absolute Auto 0.3 X10*3/uL (0.0-0.4); Eosinophils Percent Auto 2.9 % (0-4); Hematocrit 40.3 % (37.0-47.0); Hemoglobin 13.8 g/dl (12.0-16.0); Imm Gran Abs Auto 0.06 X10*3/uL (0.00-0.03); Imm Gran Pct Auto 0.7 % (0.0-0.4); Lymphocytes Absolute Auto 2.6 X10*3/uL (1.2-4.9); Lymphocytes Percent Auto 28.7 % (20-40); Mean Corpuscular HGB Conc 34.2 g/dl (31.0-35.0); Mean Corpuscular Hemoglobin 28.5 pg (27.0-33.0); Mean Corpuscular Volume 83.1 fL (80.0-98.0); Mean Platelet Volume 10.7 fL (9.4-12.3); Monocytes Absolute Auto 0.6 X10*3/uL (0.1-1.2); Monocytes Percent Auto 6.4 % (2-11); Neutrophils Absolute Auto 5.5 x10*3/uL (2.0-8.3); Neutrophils Percent Auto 60.7 % (45-73); Platelet Count 235 X10*3/uL (160-400); Red Blood Count 4.85 X10*6/uL (4.20-5.50); Red Cell Distribution Width 12.4 % (11.0-16.0); White Blood Count 9.1 X10*3/uL (4.8-10.8)
[2021-04-28 16:40] LABS: Appearance Urine CLEAR; Color Urine YELLOW; Glucose Urine UA NEG (NEG); Leukocyte Esterase Urine NEG (NEG); Nitrite Urine NEG (NEG); PH 5.5 (5.0-8.0); Specific Gravity - Urine >= 1.030 (1.005-1.025); UACC Culture Trigger NO; Urine Blood TRACE (NEG); Urine Ketones NEG (NEG); Urine Protein TRACE MG/DL (NEG-TRACE)
[2021-04-28 16:41] LABS: UPreg QC Valid YES; Urine Pregnancy NEGATIVE (NEGATIVE)
[2021-04-28 16:45] LABS: RBC Urine 0-2 /HPF (0); Squamous Epithelial Cell Urine 3+ /LPF; WBC Urine 0-2 /HPF (0-4)
[2021-04-28 16:46] LABS: Bacteria Urine 1+ /LPF
[2021-04-28 16:55] LABS: Alanine Aminotransferase 21 U/L (0-31); Albumin Level 4.7 g/dL (3.5-5.0); Alkaline Phosphatase 101 U/L (39-117); Anion Gap 14 (12-20); Aspartate Amino Transferase 21 U/L (5-31); Bilirubin Total 0.4 mg/dL (0.0-1.0); Blood Urea Nitrogen 9 mg/dL (9-16); Carbon Dioxide 24 mmol/L (22-29); Chloride 103 mmol/L (96-108); Creatinine Clr Calc Pharmacy 110.6; Estimated Glomerular Filt Rate > 60; Glucose Random 86 mg/dL (60-115); Potassium 3.7 mmol/L (3.3-5.1); Sodium 137 mmol/L (135-145); Total Protein 7.9 g/dL (6.5-8.0)
[2021-04-28 17:07] LABS: COVID-19 Test Negative (Negative)
--- NOTE | 2021-04-28 18:05 | ED_ITS ---
HPI - General Adult General Chief complaint: General Medical Stated complaint: tingling gum swelling facial swelling Time Seen by Provider: 04/28/21 18:05 Source: patient Mode of arrival: ambulatory Limitations: no limitations History of Present Illness HPI narrative: Patient with history of Brando disease normal TSH few months ago got a new job increased stress out unable to sleep in the night comes here with multiple complaints including fatigue tingling sensations headache frequently going to the urine poor sleep for last 1 week Related Data Home Medications Medication Instructions Recorded Confirmed levothyroxine 75 mcg tablet 75 mcg PO DAILY 03/26/20 01/15/21 Previous Rx's Medication Instructions Recorded lorazepam 1 mg tablet (Ativan) 1 mg PO BEDTIME PRN #10 tab 04/28/21 Allergies Allergy/AdvReac Type Severity Reaction Status Date / Time ventura Allergy Severe ANAPHYLAXIS Verified 04/28/21 16:14 soy [Soy] Allergy Severe ANAPHYLAXIS Verified 04/28/21 16:14 amoxicillin [Amoxicillin] Allergy Intermediate HIVES Verified 04/28/21 16:14 Amoxicillin Allergy Unknown anaphylaxis Uncoded 10/13/11 00:00 From Prozac AdvReac Intermediate HALLUCINATI Uncoded 11/29/19 16:43 ONS Review of Systems Review of Systems: Yes all other systems are reviewed and are negative PMFSH Past Medical History Medical History Deafness in right ear Brando thyroiditis, fibrous variant Hypertension Morbid obesity with body mass index (BMI) of 40.0 to 44.9 in adult PCOS (polycystic ovarian syndrome) Surgical History H/O wrist surgery Hx of section Hx of tonsillectomy Hx of tubal ligation Social History Social History Alcohol intake: current Alcohol intake frequency: holidays/special occasions only Alcohol type: wine Patient Tobacco Use Status: Current everyday Tobacco user Cigarettes Per Day: 2 Advance Directives: No Advance Directives Information Provided: Yes Sexual orientation: Straight/Heterosexual Physical Exam ED Vital Signs: Vital Signs - 24 hr 04/28/21 16:14 04/28/21 18:21 Temperature 98.0 F 98.7 F Pulse Rate 76 70 Respiratory Rate 18 16 Blood Pressure 139/77 156/107 H Pulse Oximetry 97 99 BMI result Body Mass Index 39.0 Appearance: Alert. Oriented X3. No acute distress. Anxious Eyes: No pallor or icterus ENT: Pharynx normal. Oral Mucosa moist Neck: Normal inspection. Neck supple. CVS: Normal heart rate and rhythm. Pulses normal. Respiratory: No respiratory distress. Equal air entry bilateral, no wheezin g/rales/rhonchi Abdomen: Soft and nontender. Bowel sounds are present, no mass palpable, Skin: Skin warm and dry. Normal skin color. Normal skin turgor. Extremities: No lower extremity edema. No calf tenderness Neuro: Oriented X 3. Medical Decision Making Lab Data Result diagrams: 04/28/21 16:28 04/28/21 16:28 Labs: Lab Results 04/28/21 04/28/21 04/28/21 Range/Units 16:28 16:28 16:28 WBC 9.1 (4.8-10.8) X10*3/uL RBC 4.85 (4.20-5.50) X10*6/uL Hgb 13.8 (12.0-16.0) g/dl Hct 40.3 (37.0-47.0) % MCV 83.1 (80.0-98.0) fL MCH 28.5 (27.0-33.0) pg MCHC 34.2 (31.0-35.0) g/dl RDW 12.4 (11.0-16.0) % Plt Count 235 (160-400) X10*3/uL MPV 10.7 (9.4-12.3) fL Immature Gran % (Auto) 0.7 H (0.0-0.4) % Neut % (Auto) 60.7 (45-73) % Lymph % (Auto) 28.7 (20-40) % Colbert % (Auto) 6.4 (2-11) % Eos % (Auto) 2.9 (0-4) % Baso % (Auto) 0.6 (0-2) % Lymph # (Auto) 2.6 (1.2-4.9) X10*3/uL Colbert # (Auto) 0.6 (0.1-1.2) X10*3/uL Eos # (Auto) 0.3 (0.0-0.4) X10*3/uL Baso # (Auto) 0.1 (0.0-0.2) X10*3/uL Abs Immat Gran (auto) 0.06 H (0.00-0.03) X10*3/uL Absolute Neuts (auto) 5.5 (2.0-8.3) x10*3/uL Absolute Nucleated RBC 0.000 (0.0-0.012) X10*3/uL Nucleated RBC % (auto) 0.0 (0.0-0.2) /100WBC Sodium 137 (135-145) mmol/L Potassium 3.7 (3.3-5.1) mmol/L Chloride 103 (96-108) mmol/L Carbon Dioxide 24 (22-29) mmol/L Anion Gap 14 (12-20) BUN 9 (9-16) mg/dL Creatinine 0.76 (0.5-1.4) mg/dL Estim Creat Clear Calc 110.6 Estimated GFR > 60 Random Glucose 86 (60-115) mg/dL Calcium 10.0 D (8.4-10.2) mg/dL Magnesium 1.7 (1.6-2.6) mg/dL Total Bilirubin 0.4 (0.0-1.0) mg/dL AST 21 (5-31) U/L ALT 21 (0-31) U/L Alkaline Phosphatase 101 (39-117) U/L Total Protein 7.9 (6.5-8.0) g/dL Albumin 4.7 (3.5-5.0) g/dL TSH 2.49 (0.32-4.0) uIU/mL Urine Color Urine Appearance Urine pH (5.0-8.0) Ur Specific [place] (1.005-1.025) Urine Protein (NEG-TRACE) MG/DL Urine Glucose (UA) (NEG) MG/DL Urine Ketones (NEG) MG/DL Urine Blood (NEG) Urine Nitrite (NEG) Ur Leukocyte Esterase (NEG) Urine RBC (0) /HPF Urine WBC (0-4) /HPF Ur Squamous Epith Cells /LPF Urine Bacteria /LPF Urine Test NEGATIVE (NEGATIVE) COVID-19 (SETH) (Negative) COVID-19 Clin Com 02/15/22 02/15/22 Range/Units 16:28 16:28 WBC (4.8-10.8) X10*3/uL RBC (4.20-5.50) X10*6/uL Hgb (12.0-16.0) g/dl Hct (37.0-47.0) % MCV (80.0-98.0) fL MCH (27.0-33.0) pg MCHC (31.0-35.0) g/dl RDW (11.0-16.0) % Plt Count (160-400) X10*3/uL MPV (9.4-12.3) fL Immature Gran % (Auto) (0.0-0.4) % Neut % (Auto) (45-73) % Lymph % (Auto) (20-40) % Colbert % (Auto) (2-11) % Eos % (Auto) (0-4) % Baso % (Auto) (0-2) % Lymph # (Auto) (1.2-4.9) X10*3/uL Colbert # (Auto) (0.1-1.2) X10*3/uL Eos # (Auto) (0.0-0.4) X10*3/uL Baso # (Auto) (0.0-0.2) X10*3/uL Abs Immat Gran (auto) (0.00-0.03) X10*3/uL Absolute Neuts (auto) (2.0-8.3) x10*3/uL Absolute Nucleated RBC (0.0-0.012) X10*3/uL Nucleated RBC % (auto) (0.0-0.2) /100WBC Sodium (135-145) mmol/L Potassium (3.3-5.1) mmol/L Chloride (96-108) mmol/L Carbon Dioxide (22-29) mmol/L Anion Gap (12-20) BUN (9-16) mg/dL Creatinine (0.5-1.4) mg/dL Estim Creat Clear Calc Estimated GFR Random Glucose (60-115) mg/dL Calcium (8.4-10.2) mg/dL Magnesium (1.6-2.6) mg/dL Total Bilirubin (0.0-1.0) mg/dL AST (5-31) U/L ALT (0-31) U/L Alkaline Phosphatase (39-117) U/L Total Protein (6.5-8.0) g/dL Albumin (3.5-5.0) g/dL TSH (0.32-4.0) uIU/mL Urine Color YELLOW Urine Appearance CLEAR Urine pH 5.5 (5.0-8.0) Ur Specific [place] >= 1.030 H (1.005-1.025) Urine Protein TRACE (NEG-TRACE) MG/DL Urine Glucose (UA) NEG (NEG) MG/DL Urine Ketones NEG (NEG) MG/DL Urine Blood TRACE (NEG) Urine Nitrite NEG (NEG) Ur Leukocyte Esterase NEG (NEG) Urine RBC 0-2 (0) /HPF Urine WBC 0-2 (0-4) /HPF Ur Squamous Epith Cells 3+ /LPF Urine Bacteria 1+ /LPF Urine Test (NEGATIVE) COVID-19 ([facility]) Negative (Negative) COVID-19 Clin Com See Note Discharge Plan Discharge Clinical Impression: Anxiety Patient Disposition: Home, Self-Care Instructions: Anxiety (ED) Additional Instructions: Take medication as advised for anxiety Follow-up with your PCP Prescriptions: New lorazepam [Ativan] 1 mg tablet 1 mg PO BEDTIME PRN (Reason: anxiety) Qty: 10 0RF No Action levothyroxine 75 mcg tablet 75 mcg PO DAILY 0RF Stand Alone Forms: Work/School Release Interventions: ED Discharge Assessment Last Done: 04/28/21 20:03 Discharge Date/Time: 04/28/21 20:04
[2021-04-28 18:21] VITALS: BP 156/107; PULSE 70; RESP 16; TEMP 37.1; O2SAT 99
[2021-04-28 19:26] LABS: Magnesium 1.7 mg/dL (1.6-2.6)
[2021-04-28 19:47] LABS: Thyroid Stimulating Hormone 2.49 uIU/mL (0.32-4.0)
== END 2021-04-28 20:04 | disposition home or self-care (01) ==
PROVIDERS: Emergency Provider Internal Medicine; PCP Family Medicine
DX: F41.9 Anxiety disorder, unspecified (principal); Z20.822 Contact with and (suspected) exposure to COVID-19; I10 Essential (primary) hypertension; F17.200 Nicotine dependence, unspecified, uncomplicated
CPT/HCPCS: 80053; 81001; 81025; 83735; 84443; 85025; 87635; 99283

== ENCOUNTER 2021-08-16 05:49 | Emergency (ER) | payer MEDICAID, SELFPAY ==
[2021-08-16 06:07] VITALS: BP 147/99; PULSE 89; RESP 20; TEMP 36.6; O2SAT 97; BMI 41.0
--- NOTE | 2021-08-16 07:12 | ED_ITS ---
HPI - Female Genitourinary General Chief complaint: Urogenital-Female Stated complaint: UTI? abnormal discharge, vomiting, diarrhea & pain Time Seen by Provider: 08/16/21 06:35 Source: patient Mode of arrival: ambulatory History of Present Illness HPI Narrative: 31-year-old female without significant past medical history presents with complaints burning and urinary frequency for approximately 5 days, unable to follow-up with PCP if she does not have 1, she states that she has had some mild nausea today but states that her gentle your hurt. She denies any foul smell, whitish discharge, and although she is sexually active her last sexual encounter was over a month ago. Related Data Home Medications Medication Instructions Recorded Confirmed levothyroxine 75 mcg tablet 75 mcg PO DAILY 03/26/20 01/15/21 Previous Rx's Medication Instructions Recorded lorazepam 1 mg tablet (Ativan) 1 mg PO BEDTIME PRN #10 tab 04/28/21 levofloxacin 750 mg tablet 750 mg PO DAILY #7 tab 08/16/21 phenazopyridine 200 mg tablet 200 mg PO TID PRN #6 tab 08/16/21 (Pyridium) Allergies Allergy/AdvReac Type Severity Reaction Status Date / Time ventura Allergy Severe ANAPHYLAXIS Verified 08/16/21 06:17 soy [Soy] Allergy Severe ANAPHYLAXIS Verified 08/16/21 06:17 amoxicillin [Amoxicillin] Allergy Intermediate HIVES Verified 08/16/21 06:17 Amoxicillin Allergy Unknown anaphylaxis Uncoded 08/16/21 06:17 From Prozac AdvReac Intermediate HALLUCINATI Uncoded 08/16/21 06:17 ONS Review of Systems Review of Systems: Pertinent positives and negatives as stated in HPI 10 point review systems is otherwise negative. [facility] Past Medical History Source: nursing notes reviewed Medical History Deafness in right ear Brando thyroiditis, fibrous variant Hypertension Morbid obesity with body mass index (BMI) of 40.0 to 44.9 in adult PCOS (polycystic ovarian syndrome) Surgical History H/O wrist surgery Hx of section Hx of tonsillectomy Hx of tubal ligation Social History Social History Alcohol intake: current Alcohol intake frequency: a few times a week Alcohol type: wine Patient Tobacco Use Status: Current everyday Tobacco user Cigarettes Per Day: 2 Use of substances other than those prescribed or required for medical reasons: No Advance Directives: No Advance Directives Information Provided: No Sexual orientation: Straight/Heterosexual Physical Exam Vital Signs: Vital Signs: Last Vital Signs Temp 97.9 F 08/16/21 06:07 Pulse 76 08/16/21 07:41 Resp 18 08/16/21 07:41 BP 143/103 H 08/16/21 07:41 Pulse Ox 97 08/16/21 06:07 BMI result Body Mass Index 41.0 VITAL SIGNS: Reviewed. GENERAL: Well developed, well nourished, in no acute distress. HEAD: Normocephalic/atraumatic EYES: PERRLA, EOMI EARS: Ext canals without abnormality OROPHARYNX: no oral lesions noted, posterior pharynx clear LUNGS: Normal breath sounds. No adventitious sounds or accessory muscle use. SpO2<97> CARDIOVASCULAR: Regular rate and rhythm without noted murmurs ABDOMEN: Soft, non-tender, non-distended with bowel sounds. :[[employer]]- labia and vulva are erythematous but there is no noted vesicles or ulcerations and no whitish discharge MUSCULOSKELETAL: No tenderness, deformities, or effusions noted on gross inspection. EXTREMITIES: No cyanosis, clubbing or edema. SKIN: Inspection of the skin reveals no rashes NEUROLOGIC: Alert and oriented x 4. Strength and sensation to light touch were grossly intact x 4. Course Course Course Narrative: 31-year-old female with history and clinical presentation consistent UTI and less likely felt to be STI, however may be herpes and unable to appreciate vesicles at this time. On review of all investigations patient urine grossly positive and given underlying presentation will treat with initial dose of levofloxacin here in the emergency room and then discharged her on remaining course. She will also go [facility]. Hospitalists accidentally went into patient's room as there was a same name mistake. Patient became upset and both the hospitalist and myself when in and apologized profusely, patient in discomfort and otherwise except apology but was notably upset. MDM - Female Genitourinary Lab Data Labs: Lab Results 08/16/21 Range/Units 07:46 Urine Color ORANGE A Urine Appearance CLOUDY Urine pH 5.0 (5.0-8.0) Ur Specific [place] 1.025 (1.005-1.025) Urine Protein TNP Urine Glucose (UA) TNP Urine Ketones 5 (NEG) MG/DL Urine Blood 3+ H (NEG) Urine Nitrite POS H (NEG) Ur Leukocyte Esterase 2+ H (NEG) Urine RBC 30-49 H (0) /HPF Urine WBC 50-75 H (0-4) /HPF Ur Squamous Epith Cells 1+ /LPF Urine Bacteria 2+ /LPF Discharge Plan Discharge Clinical Impression: Pyelonephritis Patient Disposition: Home, Self-Care Instructions: Kidney Infection (ED) Additional Instructions: 1. Complete the entire course of antibiotics. You will not need to take the next dose of antibiotic until tomorrow because you have received initial dose here. 2. Continue take [id number] Tylenol and ibuprofen as needed for additional pain control., drink plenty of water. 3. Return to the ER for any worsening symptoms. Prescriptions: New levofloxacin 750 mg tablet 750 mg PO DAILY Qty: 7 0RF phenazopyridine [Pyridium] 200 mg tablet 200 mg PO TID PRN (Reason: pain) Qty: 6 0RF No Action lorazepam [Ativan] 1 mg tablet 1 mg PO BEDTIME PRN (Reason: anxiety) Qty: 10 0RF levothyroxine 75 mcg tablet 75 mcg PO DAILY 0RF
[2021-08-16 07:41] VITALS: BP 143/103; PULSE 76; RESP 18
[2021-08-16 07:53] LABS: Appearance Urine CLOUDY; Color Urine ORANGE; Leukocyte Esterase Urine 2+ (NEG); Nitrite Urine POS (NEG); Specific Gravity - Urine 1.025 (1.005-1.025); UACC Culture Trigger YES; Urine Blood 3+ (NEG); Urine Ketones 5 MG/DL (NEG)
--- NOTE | 2021-08-16 08:00 | PC.NURSE ---
pt is refusing the urojet
[2021-08-16 08:09] LABS: Bacteria Urine 2+ /LPF; RBC Urine 30-49 /HPF (0); Squamous Epithelial Cell Urine 1+ /LPF; WBC Urine 50-75 /HPF (0-4)
[2021-08-16] MEDS: levoFLOXacin 750 MG TABLET PO (09:26)
[2021-08-16] MEDS: Ketorolac Tromethamine 15 MG/ML VIAL IM (09:26)
[2021-08-16] MEDS: Acetaminophen 325 MG TABLET 975 MG PO (09:26)
[2021-08-16] MEDS: Phenazopyridine HCL 200 MG TABLET PO (09:26)
[2021-08-16 12:37] LABS: CT PCR NOT DETECTED (Not Detect.); NG PCR NOT DETECTED (Not Detect.)
== END 2021-08-16 09:36 | disposition home or self-care (01) ==
PROVIDERS: Emergency Provider Student in an Organized Health Care Education/Training Program
DX: N12 Tubulo-interstitial nephritis, not specified as acute or chronic (principal); I10 Essential (primary) hypertension
CPT/HCPCS: 81001; 81003; 87086; 87088; 87186; 87491; 87591; 96372; 99284; J1885

== ENCOUNTER 2021-12-04 04:57 | Emergency (ER) | payer MEDICAID, SELFPAY ==
--- NOTE | 2021-12-04 05:07 | ECG_ITS ---
Test Reason : CHEST PAIN Blood Pressure : / mmHG Vent. Rate : 088 BPM Atrial Rate : 088 BPM P-R Int : 122 ms QRS Dur : 074 ms QT Int : 396 ms P-R-T Axes : 005 009 013 degrees QTc Int : 479 ms Normal sinus rhythm Normal ECG When compared with ECG of 25-FEB-2020 14:27, Nonspecific T wave abnormality is no longer Present Referred By: Generic ED Physician Electronically Signed By:TASHI SETH
[2021-12-04 05:09] VITALS: BP 123/65; PULSE 86; RESP 14; TEMP 37; O2SAT 96; BMI 41.0
[2021-12-04 05:32] LABS: Hematocrit 38.4 % (37.0-47.0); Hemoglobin 13.2 g/dl (12.0-16.0); Mean Corpuscular HGB Conc 34.4 g/dl (31.0-35.0); Mean Corpuscular Hemoglobin 28.7 pg (27.0-33.0); Mean Corpuscular Volume 83.5 fL (80.0-98.0); Mean Platelet Volume 10.4 fL (9.4-12.3); Platelet Count 167 X10*3/uL (160-400); Red Cell Distribution Width 12.5 % (11.0-16.0); White Blood Count 7.6 X10*3/uL (4.8-10.8)
[2021-12-04 05:49] LABS: COVID-19 Test Negative (Negative); IDNOW Serial# 9DB6401D
[2021-12-04 05:51] LABS: Alanine Aminotransferase 29 U/L (0-31); Albumin Level 4.5 g/dL (3.5-5.0); Alkaline Phosphatase 89 U/L (39-117); Anion Gap 18 (12-20); Aspartate Amino Transferase 19 U/L (5-31); Bilirubin Total 0.9 mg/dL (0.0-1.0); Blood Urea Nitrogen 13 mg/dL (9-16); Calcium 9.3 mg/dL (8.4-10.2); Carbon Dioxide 20 mmol/L (22-29); Chloride 103 mmol/L (96-108); Creatinine Clr Calc Pharmacy 111.3; Estimated Glomerular Filt Rate > 60; Glucose Random 123 mg/dL (60-115); Sodium 137 mmol/L (135-145); Total Protein 7.1 g/dL (6.5-8.0); Troponin-I High Sensitivity < 3.5 ng/L (<3.5-17.0)
--- NOTE | 2021-12-04 09:11 | ED.CHESTPAIN ---
HPI - Chest Pain General Chief Complaint: Chest Pain Stated Complaint: Chest Pain, tingling in hands Time Seen by Provider: 12/04/21 09:01 Source: patient and old records reviewed History of Present Illness HPI narrative: Patient with a history of Brando's thyroiditis presents complaining of 2 weeks of chest pain and increased stress. She states occasionally she gets tingling of her hands and feet when her symptoms are bad. She describes the chest pain is constant for the past 2 weeks although waxing and waning. Substernal, worse with inspiration. Positive cough over the last 3 days without sputum or fever. No shortness of breath. She states she is very anxious but not depressed or suicidal. She is having issues where she is losing her house, getting , and moving back in with her parents. She is unable to find a PCP or an operations intelligence. Otherwise no other physical complaints. No nausea vomiting. Related Data Home Medications Medication Instructions Recorded Confirmed levothyroxine 75 mcg tablet 75 mcg PO DAILY 03/26/20 01/15/21 Previous Rx's Medication Instructions Recorded lorazepam 1 mg tablet (Ativan) 1 mg PO BEDTIME PRN anxiety #10 04/28/21 tabs levofloxacin 750 mg tablet 750 mg PO DAILY #7 tabs 08/16/21 phenazopyridine 200 mg tablet 200 mg PO TID PRN pain 6 doses #6 08/16/21 (Pyridium) tabs levothyroxine 75 mcg capsule 75 mcg PO DAILY #60 caps 12/04/21 Allergies Allergy/AdvReac Type Severity Reaction Status Date / Time ventura Allergy Severe ANAPHYLAXIS Verified 08/16/21 06:17 soy [Soy] Allergy Severe ANAPHYLAXIS Verified 08/16/21 06:17 amoxicillin [Amoxicillin] Allergy Intermediate HIVES Verified 08/16/21 06:17 Amoxicillin Allergy Unknown anaphylaxis Uncoded 08/16/21 06:17 From Prozac AdvReac Intermediate HALLUCINATI Uncoded 08/16/21 06:17 ONS Review of Systems Constitutional: Comments: No fevers or chills Cardiovascular: Comments: Chest pain without palpitations Respiratory: Comments: Cough without dyspnea or sputum Gastrointestinal: Comments: No nausea vomiting diarrhea constipation Integumentary/Breasts: Comments: No rash Psychiatric: Comments: Anxiety without depression or suicidal ideation PMFSH Past Medical History Medical History Deafness in right ear Brando thyroiditis, fibrous variant Hypertension Morbid obesity with body mass index (BMI) of 40.0 to 44.9 in adult PCOS (polycystic ovarian syndrome) Surgical History H/O wrist surgery Hx of section Hx of tonsillectomy Hx of tubal ligation Social History Social History Alcohol intake: current Alcohol intake frequency: holidays/special occasions only Alcohol type: wine Patient Tobacco Use Status: Current everyday Tobacco user Cigarettes Per Day: 2 Use of substances other than those prescribed or required for medical reasons: No Advance Directives: Yes Advance Directives Information Provided: Yes Advance Directives on File: No Patient : No Sexual orientation: Straight/Heterosexual Physical Exam Vital Signs: Vital Signs: Last Vital Signs Temp 97.9 F 12/04/21 09:25 Pulse 79 12/04/21 09:25 Resp 20 12/04/21 09:25 BP 130/74 12/04/21 09:25 Pulse Ox 96 12/04/21 05:09 O2 Del Method 12/04/21 05:09 BMI result Body Mass Index 41.0 Const: Other: Awake and alert. Anxious but no acute distress Neck: Other: Full range of motion Resp: Other: Clear and equal bilaterally without wheezes rales or rhonchi Cardio: Other: Regular rate and rhythm without murmurs rubs or gallops GI: Other: Soft nontender nondistended Skin: Other: Warm pink and dry without rash Neuro: Other: No focal weakness Psych: Other: Anxious but denies depression or suicidal ideation Course Course Course Narrative: Chest pain Cardiac ischemia or dysrhythmia Brando's thyroiditis Rule out hypo or hyperthyroidism Rule out myocardial ischemia Rule out pneumonia Rule out COVID-19 Workup in the emergency department shows COVID-19 test is negative. Troponin is negative. EKG is normal sinus rhythm without ischemic changes or change from prior Remainder of labs so far negative. Thyroid studies added on. 11:29. Thyroid studies are normal. Stable for discharge home MDM - Chest Pain Lab Data Result diagrams: 12/04/21 05:26 12/04/21 05:26 Labs: Lab Results 12/04/21 12/04/21 12/04/21 Range/Units 05:26 05:26 05:26 WBC 7.6 (4.8-10.8) X10*3/uL RBC 4.60 (4.20-5.50) X10*6/uL Hgb 13.2 (12.0-16.0) g/dl Hct 38.4 (37.0-47.0) % MCV 83.5 (80.0-98.0) fL MCH 28.7 (27.0-33.0) pg MCHC 34.4 (31.0-35.0) g/dl RDW 12.5 (11.0-16.0) % Plt Count 167 D (160-400) X10*3/uL MPV 10.4 (9.4-12.3) fL Absolute Nucleated RBC 0.000 (0.0-0.012) X10*3/uL Nucleated RBC % (auto) 0.0 (0.0-0.2) /100WBC Sodium 137 (135-145) mmol/L Potassium 4.0 (3.3-5.1) mmol/L Chloride 103 (96-108) mmol/L Carbon Dioxide 20 L (22-29) mmol/L Anion Gap 18 (12-20) BUN 13 (9-16) mg/dL Creatinine 0.77 (0.5-1.4) mg/dL Estim Creat Clear Calc 111.3 Estimated GFR > 60 Random Glucose 123 H (60-115) mg/dL Calcium 9.3 D (8.4-10.2) mg/dL Total Bilirubin 0.9 (0.0-1.0) mg/dL AST 19 (5-31) U/L ALT 29 (0-31) U/L Alkaline Phosphatase 89 (39-117) U/L Troponin I High Sens < 3.5 (<3.5-17.0) ng/L Total Protein 7.1 (6.5-8.0) g/dL Albumin 4.5 (3.5-5.0) g/dL TSH 1.61 (0.32-4.0) uIU/mL Thyroxine (T4) 8.3 (4.5-12.0) ug/dL COVID-19 ([facility]H) (Negative) COVID-19 Clin Com 12/04/21 Range/Units 05:31 WBC (4.8-10.8) X10*3/uL RBC (4.20-5.50) X10*6/uL Hgb (12.0-16.0) g/dl Hct (37.0-47.0) % MCV (80.0-98.0) fL MCH (27.0-33.0) pg MCHC (31.0-35.0) g/dl RDW (11.0-16.0) % Plt Count (160-400) X10*3/uL MPV (9.4-12.3) fL Absolute Nucleated RBC (0.0-0.012) X10*3/uL Nucleated RBC % (auto) (0.0-0.2) /100WBC Sodium (135-145) mmol/L Potassium (3.3-5.1) mmol/L Chloride (96-108) mmol/L Carbon Dioxide (22-29) mmol/L Anion Gap (12-20) BUN (9-16) mg/dL Creatinine (0.5-1.4) mg/dL Estim Creat Clear Calc Estimated GFR Random Glucose (60-115) mg/dL Calcium (8.4-10.2) mg/dL Total Bilirubin (0.0-1.0) mg/dL AST (5-31) U/L ALT (0-31) U/L Alkaline Phosphatase (39-117) U/L Troponin I High Sens (<3.5-17.0) ng/L Total Protein (6.5-8.0) g/dL Albumin (3.5-5.0) g/dL TSH (0.32-4.0) uIU/mL Thyroxine (T4) (4.5-12.0) ug/dL COVID-19 (SETH) Negative (Negative) COVID-19 Clin Com See Note Discharge Plan Discharge Clinical Impression: Brando thyroiditis, fibrous variant, Atypical chest pain Patient Disposition: Home, Self-Care Instructions: Autoimmune Thyroid Disorders (ED), Noncardiac Chest Pain (ED) Prescriptions: New levothyroxine 75 mcg capsule 75 mcg PO DAILY Qty: 60 0RF No Action lorazepam [Ativan] 1 mg tablet 1 mg PO BEDTIME PRN (Reason: anxiety) Qty: 10 0RF levofloxacin 750 mg tablet 750 mg PO DAILY Qty: 7 0RF phenazopyridine [Pyridium] 200 mg tablet 200 mg PO TID PRN (Reason: pain) Qty: 6 0RF levothyroxine 75 mcg tablet 75 mcg PO DAILY
[2021-12-04 09:25] VITALS: BP 130/74; PULSE 79; RESP 20; TEMP 36.6
[2021-12-04 11:17] LABS: T4 Thyroxine 8.3 ug/dL (4.5-12.0); Thyroid Stimulating Hormone 1.61 uIU/mL (0.32-4.0)
== END 2021-12-04 11:57 | disposition home or self-care (01) ==
PROVIDERS: Emergency Provider Emergency Medicine
DX: R07.89 Other chest pain (principal); E06.3 Autoimmune thyroiditis; R20.2 Paresthesia of skin; F41.9 Anxiety disorder, unspecified; Z20.822 Contact with and (suspected) exposure to COVID-19; I10 Essential (primary) hypertension; F17.210 Nicotine dependence, cigarettes, uncomplicated; E66.01 Morbid (severe) obesity due to excess calories; Z68.41 Body mass index [BMI] 40.0-44.9, adult; Z79.899 Other long term (current) drug therapy
CPT/HCPCS: 36415; 80053; 84436; 84443; 84484; 85027; 87635; 93005; 99283; 99285

== ENCOUNTER 2022-06-12 14:12 | Emergency (ER) | payer MEDICAID, SELFPAY ==
--- NOTE | ~2022-06-12 | CT_ITS ---
EXAMINATION: CT gi bleed abd pel wo/w IVcon CLINICAL INFORMATION: Melanoma, history of upper GI bleed COMPARISON: CT abdomen pelvis 03/28/2020 TECHNIQUE: Multiple axial images were obtained through the abdomen and pelvis prior to and following following the administration of 90 mL of Omnipaque [address] examination was performed using dose optimization techniques as appropriate, variously including the following: *Automated exposure control *Adjustment of mA and/or kV according to patient size (this includes techniques or standardized protocols for targeted exams where dose is matched to indication/reason for exam; i.e. extremities or head) *Use of iterative reconstruction technique DLP: 1813 mGy-cm FINDINGS: LUNG BASES: Unremarkable. ABDOMINAL AND PELVIC WALL: Unremarkable. LIVER AND BILIARY TREE: Liver is enlarged measuring 20.9 cm in span. Hypoattenuating hepatic parenchyma compatible with hepatic steatosis. GALLBLADDER: Unremarkable. PANCREAS: Unremarkable. SPLEEN: Unremarkable. ADRENAL GLANDS: Unremarkable. KIDNEYS AND URETERS: Unremarkable. GASTROINTESTINAL TRACT: Colonic diverticulosis without evidence of diverticulitis. No active extravasation of contrast within the stomach, small and large bowel to suggest active bleeding. Normal appendix. VASCULAR: Unremarkable. LYMPH NODES/PERITONEUM: No lymphadenopathy. FREE FLUID: None. BLADDER: Unremarkable. PELVIC VISCERA: Physiologic left ovarian corpus luteum. OSSEOUS STRUCTURES: Unremarkable. CT/CT gi bleed abd pel wo/w IVcon IMPRESSION: 1. No active extravasation of contrast within the stomach, small or large bowel to suggest active bleeding. 2. Hepatomegaly and hepatic steatosis.
[2022-06-12 14:19] VITALS: BP 153/97; PULSE 64; RESP 16; TEMP 36.6; O2SAT 97; BMI 43.0
--- NOTE | 2022-06-12 14:20 | ED.GENADULT ---
HPI - General Adult General Chief complaint: Abdominal Pain <LAURA Cota - Last Filed: 06/12/22 14:22> Stated complaint: abd pain <LAURA Cota - Last Filed: 06/12/22 14:22> Time Seen by Provider: 06/12/22 18:34 <LAURA Cota - Last Filed: 06/12/22 14:22> Source: patient <Mary Garcia NP - Last Filed: 06/12/22 23:57> Mode of arrival: ambulatory <Mary Garcia NP - Last Filed: 06/12/22 23:57> Limitations: no limitations <Mary Garcia NP - Last Filed: 06/12/22 23:57> History of Present Illness HPI narrative: 32-year-old female presents with 3 days of epigastric pain and dark tarry stools. Patient does have a history of prior GI bleeds from a gastric ulcer. <Mary Garcia NP - Last Filed: 06/12/22 23:57> Onset (ago): day(s) (3) <Mary Garcia NP - Last Filed: 06/12/22 23:57> Location: abdomen <Mary Garcia NP - Last Filed: 06/12/22 23:57> Radiation: non-radiation <Mary Garcia NP - Last Filed: 06/12/22 23:57> Severity: moderate <Mary Garcia NP - Last Filed: 06/12/22 23:57> Severity scale (1-10): 5 <Mary Garcia NP - Last Filed: 06/12/22 23:57> Quality: aching <Mary Garcia NP - Last Filed: 06/12/22 23:57> Pain Consistency: constant <Mary Garcia NP - Last Filed: 06/12/22 23:57> Relieving factors: none <Mary Garcia NP - Last Filed: 06/12/22 23:57> Exacerbating factors: eating <Mary Garcia NP - Last Filed: 06/12/22 23:57> Associated symptoms: other (Melena) <JOSSELINE Resendez Last Filed: 06/12/22 23:57> Treatments prior to arrival: none <JOSSELINE Resendez Last Filed: 06/12/22 23:57> Related Data Home medications: Home Medications Medication Instructions Recorded Confirmed levothyroxine 75 mcg tablet 75 mcg PO DAILY 03/26/20 01/15/21 Previous Rx's Medication Instructions Recorded lorazepam 1 mg tablet (Ativan) 1 mg PO BEDTIME PRN anxiety #10 04/28/21 tabs levofloxacin 750 mg tablet 750 mg PO DAILY #7 tabs 08/16/21 phenazopyridine 200 mg tablet 200 mg PO TID PRN pain 6 doses #6 08/16/21 (Pyridium) tabs levothyroxine 75 mcg capsule 75 mcg PO DAILY #60 caps 12/04/21 omeprazole 40 mg capsule,delayed 40 mg PO DAILY 14 days #14 caps 06/12/22 release <LAURA Cota Last Filed: 06/12/22 14:22> Allergies/adverse reactions: Allergies Allergy/AdvReac Type Severity Reaction Status Date / Time venutra Allergy Severe ANAPHYLAXIS Verified 08/16/21 06:17 soy [Soy] Allergy Severe ANAPHYLAXIS Verified 08/16/21 06:17 amoxicillin [Amoxicillin] Allergy Intermediate HIVES Verified 08/16/21 06:17 Amoxicillin Allergy Unknown anaphylaxis Uncoded 08/16/21 06:17 From Prozac AdvReac Intermediate HALLUCINATI Uncoded 08/16/21 06:17 ONS <LAURA Cota Last Filed: 06/12/22 14:22> Review of Systems Review of Systems: Constitutional: No Fever, No Chills Cardiovascular: No Chest Pain, No SOB Respiratory: No Cough, No Dyspnea Gastrointestinal: No Nausea, No Vomiting, No Diarrhea, positive abdominal Pain, positive black tarry stools Genitourinary: No Dysuria, No Hematuria Musculoskeletal: No joint pain, No Myalgias, No Joint Swelling Skin: No Skin lacerations, No rash Neuro: No Weakness, No Dizziness, No Headache <JOSSELINE Resendez Last Filed: 06/12/22 23:57> Yes all other systems are reviewed and are negative <JOSSELINE Resendez Last Filed: 06/12/22 23:57> [facility] Past Medical History Attestation statement: The following information was validated with the patient. 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, fibrous variant Hypertension Morbid obesity with body mass index (BMI) of 40.0 to 44.9 in adult PCOS (polycystic ovarian syndrome) <LAURA Cota - Last Filed: 06/12/22 14:22> Surgical History: Surgical History H/O wrist surgery Hx of section Hx of tonsillectomy Hx of tubal ligation <LAURA Cota - Last Filed: 06/12/22 14:22> Social History Social History: Social History Alcohol intake: current Alcohol intake frequency: holidays/special occasions only Alcohol type: wine Patient Tobacco Use Status: Current everyday Tobacco user Cigarettes Per Day: 2 Advance Directives: No Advance Directives Information Provided: Yes Sexual orientation: Straight/Heterosexual <LAURA Cota - Last Filed: 06/12/22 14:22> Physical Exam ED Vital Signs: Vital Signs - 24 hr 06/12/22 14:19 06/12/22 19:29 06/12/22 21:42 Temperature 97.9 F 98.2 F 97.9 F Pulse Rate 64 84 87 Respiratory Rate 16 18 18 Blood Pressure 153/97 H 135/82 143/87 H Pulse Oximetry 97 98 98 Oxygen Delivery Method Room Air Room Air Room Air BMI result Body Mass Index 43.0 <LAURA Cota - Last Filed: 06/12/22 14:22> Vital Signs - 24 hr 06/12/22 14:19 06/12/22 19:29 06/12/22 21:42 Temperature 97.9 F 98.2 F 97.9 F Pulse Rate 64 84 87 Respiratory Rate 16 18 18 Blood Pressure 153/97 H 135/82 143/87 H Pulse Oximetry 97 98 98 Oxygen Delivery Method Room Air Room Air Room Air BMI result Body Mass Index 43.0 <Mary Garcia NP - Last Filed: 06/12/22 23:57> Appearance: Alert. Oriented X3. No acute distress. Eyes: Pupils equal, round and reactive to light. Neck: Normal inspection. Neck supple. CVS: Normal heart rate and rhythm. Pulses normal. Respiratory: No respiratory distress. Breath sounds normal. Abdomen: Soft and mild epigastric tenderness. Negative McBurney's, negative Bansal's. Skin: Skin warm and dry. Normal skin color. Normal skin turgor. Extremities: No lower extremity edema. Gait balance and coordinated. Neuro: No motor deficit. No sensory deficit. Cranial nerves 2-12 intact <Mary Garcia NP - Last Filed: 06/12/22 23:57> Course Course Course Narrative: This is an RME: Additional HPI, ROS, PE not included below will be deferred to primary provider. 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 Patient reports that every time she eats she gets severe epigastric pain followed by black tarry bowel movements that are very foul smelling. Years ago she had a lower GI bleed after the GI bleed she had a colonoscopy done that showed polyps. Not on thinners Physical exam epigastric discomfort Plan labs, type and screen, OBS <LAURA Cota - Last Filed: 06/12/22 14:22> This is an RME: Additional HPI, ROS, PE not included below will be deferred to primary provider. 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 Patient reports that every time she eats she gets severe epigastric pain followed by black tarry bowel movements that are very foul smelling. Years ago she had a lower GI bleed after the GI bleed she had a colonoscopy done that showed polyps. Not on thinners Physical exam epigastric discomfort Plan labs, type and screen, OBS 18:42 patient reports to have melena stools, has history of upper GI bleed. Rectal exam completed, stools do appear melanous, will order CT scan abdomen pelvis GI study, give pantoprazole, and fluids. 22:24 CT scan negative for acute findings. Occult stools negative for heme. Low likelihood of GI bleed at this time. Will have patient follow-up with Gastroenterology and primary care physician. Will refer to Dr. Lu. Patient did report using Pepto-Bismol for GERD like symptoms. This is most likely the source of the dark stools. Patient does not take iron or multivitamins. Plan of care is to discharge home. Patient verbalized understanding of and agrees to plan of care. Verbalized understanding of signs symptoms indicating need for emergent intervention. <Mary Garcia NP - Last Filed: 06/12/22 23:57> Medications Administered Discontinued Medications Generic Name Dose Route Start Last Admin Trade Name Freq PRN Reason Stop Dose Admin Sodium Chloride 1,000 mls @ 999 mls/hr 06/12/22 19:00 06/12/22 22:44 Ns IVCONT 06/12/22 20:00 Infused .Q1H1M CHARMAINE Infusion Iohexol 100 ml 06/12/22 20:37 06/12/22 20:38 Iohexol 350 Mg/Ml 100 Ml Infus..Btl IV 06/12/22 20:38 85 ml ONCE ONE Administration Pantoprazole Sodium 40 mg 06/12/22 18:54 06/12/22 19:50 Pantoprazole Sodium 40 Mg/10 Ml Vial IVPUSH 06/12/22 18:55 40 mg ONCE ONE Administration <Hazel Paul PA - Last Filed: 06/12/22 14:22> Medications Administered Discontinued Medications Generic Name Dose Route Start Last Admin Trade Name Freq PRN Reason Stop Dose Admin Sodium Chloride 1,000 mls @ 999 mls/hr 06/12/22 19:00 06/12/22 22:44 Ns IVCONT 06/12/22 20:00 Infused .Q1H1M CHARMAINE Infusion Iohexol 100 ml 06/12/22 20:37 06/12/22 20:38 Iohexol 350 Mg/Ml 100 Ml Infus..Btl IV 06/12/22 20:38 85 ml ONCE ONE Administration Pantoprazole Sodium 40 mg 06/12/22 18:54 06/12/22 19:50 Pantoprazole Sodium 40 Mg/10 Ml Vial IVPUSH 06/12/22 18:55 40 mg ONCE ONE Administration <Mary RadhaJOSSELINE perez - Last Filed: 06/12/22 23:57> Medical Decision Making Differential Diagnosis Differential Diagnoses: The differential diagnosis associated with the presentation includes <Mary Garcia NP - Last Filed: 06/12/22 23:57> GERD, peptic ulcer disease, gastritis, colitis, diverticulitis <Mary RadhaJOSSELINE perez - Last Filed: 06/12/22 23:57> Lab Data MDM Lab Attestation statement: I reviewed the patient's lab results. <Mary Garcia NP - Last Filed: 06/12/22 23:57> Result Diagrams: 06/12/22 14:33 06/12/22 14:33 <LAURA Cota - Last Filed: 06/12/22 14:22> Labs: Lab Results 06/12/22 06/12/22 06/12/22 Range/Units 14:33 14:33 14:33 WBC 7.7 (4.8-10.8) X10*3/uL RBC 4.60 (4.20-5.50) X10*6/uL Hgb 13.3 (12.0-16.0) g/dl Hct 38.1 (37.0-47.0) % MCV 82.8 (80.0-98.0) fL MCH 28.9 (27.0-33.0) pg MCHC 34.9 (31.0-35.0) g/dl RDW 12.2 (11.0-16.0) % Plt Count 189 (160-400) X10*3/uL MPV 10.5 (9.4-12.3) fL Immature Gran % (Auto) 0.3 (0.0-0.4) % Neut % (Auto) 50.4 (45-73) % Lymph % (Auto) 20.3 (20-40) % [place] % (Auto) 5.6 (2-11) % Eos % (Auto) 23.0 H (0-4) % Baso % (Auto) 0.4 (0-2) % Lymph # (Auto) 1.6 (1.2-4.9) X10*3/uL [place] # (Auto) 0.4 (0.1-1.2) X10*3/uL Eos # (Auto) 1.8 H (0.0-0.4) X10*3/uL Baso # (Auto) 0.0 (0.0-0.2) X10*3/uL Abs Immat Gran (auto) 0.02 (0.00-0.03) X10*3/uL Absolute Neuts (auto) 3.9 (2.0-8.3) x10*3/uL Absolute Nucleated RBC 0.000 (0.0-0.012) X10*3/uL Nucleated RBC % (auto) 0.0 (0.0-0.2) /100WBC Smear Tech's Comments VERIFIED Sodium 137 (135-145) mmol/L Potassium 3.7 (3.3-5.1) mmol/L Chloride 107 (96-108) mmol/L Carbon Dioxide 19 L (22-29) mmol/L Anion Gap 15 (12-20) BUN 11 (9-16) mg/dL Creatinine 0.77 (0.5-1.4) mg/dL Estim Creat Clear Calc 113.3 Estimated GFR > 60 Random Glucose 130 H (60-115) mg/dL Calcium 9.2 (8.4-10.2) mg/dL Magnesium 1.9 (1.6-2.6) mg/dL Total Bilirubin 0.4 (0.0-1.0) mg/dL AST 18 (5-31) U/L ALT 19 (0-31) U/L Alkaline Phosphatase 93 (39-117) U/L Total Protein 7.2 (6.5-8.0) g/dL Albumin 4.5 (3.5-5.0) g/dL Lipase 17 (8-78) U/L Beta HCG, Quant < 2 mIU/mL Urine Color Urine Appearance Urine pH (5.0-9.0) Ur Specific [place] (1.005-1.025) Urine Protein (Neg-Trace) mg/dL Urine Glucose (UA) (Negative) mg/dL Urine Ketones (Negative) mg/dL Urine Blood (Negative) Urine Nitrite (Negative) Ur Leukocyte Esterase (Negative) Urine RBC (0-2) /HPF Urine WBC (0-5) /HPF Ur Squamous Epith Cells (0-2) /HPF Urine Bacteria (None Seen) Hyaline Casts (0-2) /LPF Stool Occult Blood (NEGATIVE) COVID-19 ([facility]) Negative (Negative) COVID-19 Clin Com See Note Blood Type Antibody Screen 06/12/22 06/12/22 06/12/22 Range/Units 14:36 19:37 19:37 WBC (4.8-10.8) X10*3/uL RBC (4.20-5.50) X10*6/uL Hgb (12.0-16.0) g/dl Hct (37.0-47.0) % MCV (80.0-98.0) fL MCH (27.0-33.0) pg MCHC (31.0-35.0) g/dl RDW (11.0-16.0) % Plt Count (160-400) X10*3/uL MPV (9.4-12.3) fL Immature Gran % (Auto) (0.0-0.4) % Neut % (Auto) (45-73) % Lymph % (Auto) (20-40) % [place] % (Auto) (2-11) % Eos % (Auto) (0-4) % Baso % (Auto) (0-2) % Lymph # (Auto) (1.2-4.9) X10*3/uL [place] # (Auto) (0.1-1.2) X10*3/uL Eos # (Auto) (0.0-0.4) X10*3/uL Baso # (Auto) (0.0-0.2) X10*3/uL Abs Immat Gran (auto) (0.00-0.03) X10*3/uL Absolute Neuts (auto) (2.0-8.3) x10*3/uL Absolute Nucleated RBC (0.0-0.012) X10*3/uL Nucleated RBC % (auto) (0.0-0.2) /100WBC Smear Tech's Comments Sodium (135-145) mmol/L Potassium (3.3-5.1) mmol/L Chloride (96-108) mmol/L Carbon Dioxide (22-29) mmol/L Anion Gap (12-20) BUN (9-16) mg/dL Creatinine (0.5-1.4) mg/dL Estim Creat Clear Calc Estimated GFR Random Glucose (60-115) mg/dL Calcium (8.4-10.2) mg/dL Magnesium (1.6-2.6) mg/dL Total Bilirubin (0.0-1.0) mg/dL AST (5-31) U/L ALT (0-31) U/L Alkaline Phosphatase (39-117) U/L Total Protein (6.5-8.0) g/dL Albumin (3.5-5.0) g/dL Lipase (8-78) U/L Beta HCG, Quant mIU/mL Urine Color Yellow Urine Appearance Cloudy Urine pH 6.0 (5.0-9.0) Ur Specific [place] >= 1.030 H (1.005-1.025) Urine Protein 30 (1+) H (Neg-Trace) mg/dL Urine Glucose (UA) Negative (Negative) mg/dL Urine Ketones Trace (Negative) mg/dL Urine Blood Negative (Negative) Urine Nitrite Negative (Negative) Ur Leukocyte Esterase Small (1+) H (Negative) Urine RBC 0-2 (0-2) /HPF Urine WBC 6-10 H (0-5) /HPF Ur Squamous Epith Cells >20 (0-2) /HPF Urine Bacteria 3+ (None Seen) Hyaline Casts 0-2 (0-2) /LPF Stool Occult Blood NEGATIVE (NEGATIVE) COVID-19 ([facility]) (Negative) COVID-19 Clin Com Blood Type O Positive Antibody Screen NEGATIVE <LAURA Cota - Last Filed: 06/12/22 14:22> Lab Results 06/12/22 06/12/22 06/12/22 Range/Units 14:33 14:33 14:33 WBC 7.7 (4.8-10.8) X10*3/uL RBC 4.60 (4.20-5.50) X10*6/uL Hgb 13.3 (12.0-16.0) g/dl Hct 38.1 (37.0-47.0) % MCV 82.8 (80.0-98.0) fL MCH 28.9 (27.0-33.0) pg MCHC 34.9 (31.0-35.0) g/dl RDW 12.2 (11.0-16.0) % Plt Count 189 (160-400) X10*3/uL MPV 10.5 (9.4-12.3) fL Immature Gran % (Auto) 0.3 (0.0-0.4) % Neut % (Auto) 50.4 (45-73) % Lymph % (Auto) 20.3 (20-40) % [place] % (Auto) 5.6 (2-11) % Eos % (Auto) 23.0 H (0-4) % Baso % (Auto) 0.4 (0-2) % Lymph # (Auto) 1.6 (1.2-4.9) X10*3/uL [place] # (Auto) 0.4 (0.1-1.2) X10*3/uL Eos # (Auto) 1.8 H (0.0-0.4) X10*3/uL Baso # (Auto) 0.0 (0.0-0.2) X10*3/uL Abs Immat Gran (auto) 0.02 (0.00-0.03) X10*3/uL Absolute Neuts (auto) 3.9 (2.0-8.3) x10*3/uL Absolute Nucleated RBC 0.000 (0.0-0.012) X10*3/uL Nucleated RBC % (auto) 0.0 (0.0-0.2) /100WBC Smear Tech's Comments VERIFIED Sodium 137 (135-145) mmol/L Potassium 3.7 (3.3-5.1) mmol/L Chloride 107 (96-108) mmol/L Carbon Dioxide 19 L (22-29) mmol/L Anion Gap 15 (12-20) BUN 11 (9-16) mg/dL Creatinine 0.77 (0.5-1.4) mg/dL Estim Creat Clear Calc 113.3 Estimated GFR > 60 Random Glucose 130 H (60-115) mg/dL Calcium 9.2 (8.4-10.2) mg/dL Magnesium 1.9 (1.6-2.6) mg/dL Total Bilirubin 0.4 (0.0-1.0) mg/dL AST 18 (5-31) U/L ALT 19 (0-31) U/L Alkaline Phosphatase 93 (39-117) U/L Total Protein 7.2 (6.5-8.0) g/dL Albumin 4.5 (3.5-5.0) g/dL Lipase 17 (8-78) U/L Beta HCG, Quant < 2 mIU/mL Urine Color Urine Appearance Urine pH (5.0-9.0) Ur Specific [place] (1.005-1.025) Urine Protein (Neg-Trace) mg/dL Urine Glucose (UA) (Negative) mg/dL Urine Ketones (Negative) mg/dL Urine Blood (Negative) Urine Nitrite (Negative) Ur Leukocyte Esterase (Negative) Urine RBC (0-2) /HPF Urine WBC (0-5) /HPF Ur Squamous Epith Cells (0-2) /HPF Urine Bacteria (None Seen) Hyaline Casts (0-2) /LPF Stool Occult Blood (NEGATIVE) COVID-19 ([facility]) Negative (Negative) COVID-19 Clin Com See Note Blood Type Antibody Screen 06/12/22 06/12/22 06/12/22 Range/Units 14:36 19:37 19:37 WBC (4.8-10.8) X10*3/uL RBC (4.20-5.50) X10*6/uL Hgb (12.0-16.0) g/dl Hct (37.0-47.0) % MCV (80.0-98.0) fL MCH (27.0-33.0) pg MCHC (31.0-35.0) g/dl RDW (11.0-16.0) % Plt Count (160-400) X10*3/uL MPV (9.4-12.3) fL Immature Gran % (Auto) (0.0-0.4) % Neut % (Auto) (45-73) % Lymph % (Auto) (20-40) % [place] % (Auto) (2-11) % Eos % (Auto) (0-4) % Baso % (Auto) (0-2) % Lymph # (Auto) (1.2-4.9) X10*3/uL [place] # (Auto) (0.1-1.2) X10*3/uL Eos # (Auto) (0.0-0.4) X10*3/uL Baso # (Auto) (0.0-0.2) X10*3/uL Abs Immat Gran (auto) (0.00-0.03) X10*3/uL Absolute Neuts (auto) (2.0-8.3) x10*3/uL Absolute Nucleated RBC (0.0-0.012) X10*3/uL Nucleated RBC % (auto) (0.0-0.2) /100WBC Smear Tech's Comments Sodium (135-145) mmol/L Potassium (3.3-5.1) mmol/L Chloride (96-108) mmol/L Carbon Dioxide (22-29) mmol/L Anion Gap (12-20) BUN (9-16) mg/dL Creatinine (0.5-1.4) mg/dL Estim Creat Clear Calc Estimated GFR Random Glucose (60-115) mg/dL Calcium (8.4-10.2) mg/dL Magnesium (1.6-2.6) mg/dL Total Bilirubin (0.0-1.0) mg/dL AST (5-31) U/L ALT (0-31) U/L Alkaline Phosphatase (39-117) U/L Total Protein (6.5-8.0) g/dL Albumin (3.5-5.0) g/dL Lipase (8-78) U/L Beta HCG, Quant mIU/mL Urine Color Yellow Urine Appearance Cloudy Urine pH 6.0 (5.0-9.0) Ur Specific [place] >= 1.030 H (1.005-1.025) Urine Protein 30 (1+) H (Neg-Trace) mg/dL Urine Glucose (UA) Negative (Negative) mg/dL Urine Ketones Trace (Negative) mg/dL Urine Blood Negative (Negative) Urine Nitrite Negative (Negative) Ur Leukocyte Esterase Small (1+) H (Negative) Urine RBC 0-2 (0-2) /HPF Urine WBC 6-10 H (0-5) /HPF Ur Squamous Epith Cells >20 (0-2) /HPF Urine Bacteria 3+ (None Seen) Hyaline Casts 0-2 (0-2) /LPF Stool Occult Blood NEGATIVE (NEGATIVE) COVID-19 ([facility]) (Negative) COVID-19 Clin Com Blood Type O Positive Antibody Screen NEGATIVE <Mary Garcia NP - Last Filed: 06/12/22 23:57> Independent Interpretation I performed an independent interpretation of an: CT Scan <Mary Garcia NP - Last Filed: 06/12/22 23:57> Radiology Impression Discussion of test interpretation with radiology: I have reviewed the radiologist's reading. <Mary Garcia NP - Last Filed: 06/12/22 23:57> Radiologist Impression: EXAMINATION: CT gi bleed abd pel wo/w IVcon CLINICAL INFORMATION: Melanoma, history of upper GI bleed? COMPARISON: CT abdomen pelvis 03/28/2020? TECHNIQUE: Multiple axial images were obtained through the abdomen and pelvis prior to and following following the administration of 90 mL of Omnipaque 350 intravenous [address] examination was performed using dose optimization techniques as appropriate, variously including the following: *Automated exposure control *Adjustment of mA and/or kV according to patient size (this includes techniques or standardized protocols for targeted exams where dose is matched to indication/reason for exam; i.e. extremities or head) *Use of iterative reconstruction technique DLP: 1813 mGy-cm FINDINGS: LUNG BASES: Unremarkable.? ABDOMINAL AND PELVIC WALL:? Unremarkable.? LIVER AND BILIARY TREE: Liver is enlarged measuring 20.9 cm in span. Hypoattenuating hepatic parenchyma compatible with hepatic steatosis. GALLBLADDER: Unremarkable.? PANCREAS: Unremarkable.? SPLEEN: Unremarkable.? ADRENAL GLANDS: Unremarkable.? KIDNEYS AND URETERS: Unremarkable.? GASTROINTESTINAL TRACT: Colonic diverticulosis without evidence of diverticulitis. No active extravasation of contrast within the stomach, small and large bowel to suggest active bleeding.? Normal appendix. VASCULAR: Unremarkable. LYMPH NODES/PERITONEUM: No lymphadenopathy. FREE FLUID: None. BLADDER: Unremarkable.? PELVIC VISCERA: Physiologic left ovarian corpus luteum. OSSEOUS STRUCTURES: Unremarkable.? CT/CT gi bleed abd pel wo/w IVcon IMPRESSION: 1.? No active extravasation of contrast within the stomach, small or large bowel to suggest active bleeding. 2.? Hepatomegaly and hepatic steatosis. ? <Mary Garcia NP - Last Filed: 06/12/22 23:57> External Record Review External record reviewed: Outpatient record and Prior outpatient labs <Mary Garcia NP - Last Filed: 06/12/22 23:57> Discharge Plan Discharge Clinical Impression: Abdominal pain, Black stools <LAURA Cota - Last Filed: 06/12/22 14:22> Patient Disposition: Home, Self-Care <LAURA Cota - Last Filed: 06/12/22 14:22> Instructions: Abdominal Pain (ED), Melena (ED) <LAURA Cota - Last Filed: 06/12/22 14:22> Additional Instructions: You were evaluated for epigastric abdominal pain and dark stools. Your CT scan GI bleed study was negative for acute findings. Your stool study was negative for blood. Please follow-up with Gastroenterology for GERD and history of gastric ulcers. Take omeprazole 40 mg daily for the next 2 weeks. Follow-up with primary care physician as needed. I have referred you to Gastroenterology. Your stools are black most likely due to Pepto-Bismol use. Thank you for choosing this emergency department for evaluation. Please follow-up with primary care physician as needed. Return to the emergency department for any new, concerning, or worsening symptoms. <LAURA Cota - Last Filed: 06/12/22 14:22> Prescriptions: New omeprazole 40 mg capsule,delayed release(DR/EC) 40 mg PO DAILY 14 Days Qty: 14 0RF No Action lorazepam [Ativan] 1 mg tablet 1 mg PO BEDTIME PRN (Reason: anxiety) Qty: 10 0RF levofloxacin 750 mg tablet 750 mg PO DAILY Qty: 7 0RF phenazopyridine [Pyridium] 200 mg tablet 200 mg PO TID PRN (Reason: pain) Qty: 6 0RF levothyroxine 75 mcg capsule 75 mcg PO DAILY Qty: 60 0RF levothyroxine 75 mcg tablet 75 mcg PO DAILY <LAURA Cota - Last Filed: 06/12/22 14:22> Referrals: Faye Lu MD [Physician] - 2 weeks (GERD, history peptic ulcer disease, abdominal pain) <LAURA Cota - Last Filed: 06/12/22 14:22> Interventions: ED Discharge Assessment Last Done: 06/12/22 22:44 <LAURA Cota Last Filed: 06/12/22 14:22> Discharge Date/Time: 06/12/22 22:44 <LAURA Cota - Last Filed: 06/12/22 14:22>
--- NOTE | 2022-06-12 14:38 | MHC.EDTECH ---
Labs/covid and urine collected and sent to lab
[2022-06-12 14:40] LABS: Basophils Percent Auto 0.4 % (0-2); Eosinophils Absolute Auto 1.8 X10*3/uL (0.0-0.4); Hematocrit 38.1 % (37.0-47.0); Hemoglobin 13.3 g/dl (12.0-16.0); Imm Gran Abs Auto 0.02 X10*3/uL (0.00-0.03); Imm Gran Pct Auto 0.3 % (0.0-0.4); Lymphocytes Absolute Auto 1.6 X10*3/uL (1.2-4.9); Lymphocytes Percent Auto 20.3 % (20-40); MANUAL DIFF FLAG SCAN; Mean Corpuscular HGB Conc 34.9 g/dl (31.0-35.0); Mean Corpuscular Hemoglobin 28.9 pg (27.0-33.0); Mean Corpuscular Volume 82.8 fL (80.0-98.0); Mean Platelet Volume 10.5 fL (9.4-12.3); Monocytes Absolute Auto 0.4 X10*3/uL (0.1-1.2); Monocytes Percent Auto 5.6 % (2-11); Neutrophils Absolute Auto 3.9 x10*3/uL (2.0-8.3); Neutrophils Percent Auto 50.4 % (45-73); Platelet Count 189 X10*3/uL (160-400); Red Cell Distribution Width 12.2 % (11.0-16.0); SCAN SMEAR FLAG 1; White Blood Count 7.7 X10*3/uL (4.8-10.8)
[2022-06-12 14:51] LABS: COVID-19 Test Negative (Negative); IDNOW Serial# 08D9AD1C
[2022-06-12 14:59] LABS: Alanine Aminotransferase 19 U/L (0-31); Albumin Level 4.5 g/dL (3.5-5.0); Alkaline Phosphatase 93 U/L (39-117); Anion Gap 15 (12-20); Aspartate Amino Transferase 18 U/L (5-31); Bilirubin Total 0.4 mg/dL (0.0-1.0); Blood Urea Nitrogen 11 mg/dL (9-16); Calcium 9.2 mg/dL (8.4-10.2); Carbon Dioxide 19 mmol/L (22-29); Chloride 107 mmol/L (96-108); Creatinine Clr Calc Pharmacy 113.3; Estimated Glomerular Filt Rate > 60; Glucose Random 130 mg/dL (60-115); Lipase 17 U/L (8-78); Magnesium 1.9 mg/dL (1.6-2.6); Potassium 3.7 mmol/L (3.3-5.1); Sodium 137 mmol/L (135-145); Total Protein 7.2 g/dL (6.5-8.0)
[2022-06-12 15:02] LABS: SLIDE REVIEW VERIFIED
[2022-06-12 15:05] LABS: HCG Quantitative < 2 mIU/mL
[2022-06-12 15:07] LABS: Appearance Urine Cloudy; Color Urine Yellow; Glucose Urine UA Negative (Negative); Leukocyte Esterase Urine Small (1+) (Negative); Nitrite Urine Negative (Negative); Specific Gravity - Urine >= 1.030 (1.005-1.025); UMIC TRIGGER UACC YES; Urine Blood Negative (Negative); Urine Ketones Trace mg/dL (Negative); Urine Protein 30 (1+) mg/dL (Neg-Trace)
[2022-06-12 15:12] LABS: Bacteria Urine 3+ (None Seen); Hyaline Casts Urine 0-2 /LPF (0-2); RBC Urine 0-2 /HPF (0-2); Squamous Epithelial Cell Urine >20 /HPF (0-2); UACC Culture Trigger YES
[2022-06-12 19:29] VITALS: BP 135/82; PULSE 84; RESP 18; TEMP 36.8; O2SAT 98
[2022-06-12 19:47] LABS: OBS Int Ctl Valid YES; OBS1 NEGATIVE (NEGATIVE)
[2022-06-12] MEDS: 0.9 % Sodium Chloride 1,000 ML 999 ML IVCONT (19:50)
[2022-06-12] MEDS: Pantoprazole Sodium 40 MG/10 ML VIAL IVPUSH (19:50)
--- NOTE | 2022-06-12 20:05 | MHC.EDTECH ---
This tech assumed care of patient at 1900,labs drawn and vitals obtained. Patient is resting comfortably and call mclaughlin is in reach.
[2022-06-12] MEDS: iohexoL 350 MG/ML 100 ML INFUS..BTL IV (20:38)
[2022-06-12 21:42] VITALS: BP 143/87; PULSE 87; RESP 18; TEMP 36.6; O2SAT 98
== END 2022-06-12 22:44 | disposition home or self-care (01) ==
PROVIDERS: Physician Assistant; Emergency Provider Emergency Medicine Emergency Medical Services
DX: R10.13 Epigastric pain (principal); K92.1 Melena; Z20.822 Contact with and (suspected) exposure to COVID-19
CPT/HCPCS: 74178; 80053; 81001; 81003; 82272; 83690; 83735; 84702; 85025; 86850; 86900; 86901; 87086; 87635; 96361; 96374; 99284; Q9967

== ENCOUNTER 2022-09-26 07:34 | Emergency (ER) | payer OTHER, SELFPAY ==
[2022-09-26 07:41] VITALS: BP 124/85; PULSE 94; RESP 18; TEMP 36.6; O2SAT 97; BMI 42.5
[2022-09-26 07:55] VITALS: PULSE 91
--- NOTE | 2022-09-26 08:13 | ECG_ITS ---
Test Reason : HYPERTENSION Blood Pressure : / mmHG Vent. Rate : 083 BPM Atrial Rate : 083 BPM P-R Int : 126 ms QRS Dur : 070 ms QT Int : 368 ms P-R-T Axes : 008 016 007 degrees QTc Int : 432 ms Normal sinus rhythm Low voltage QRS Cannot rule out Anterior infarct , age undetermined Abnormal ECG When compared with ECG of 04-DEC-2021 05:14, No significant change was found Referred By: Dianne Spence Electronically Signed By:Arthur Caputo
--- NOTE | 2022-09-26 08:14 | ED.SKABFB ---
HPI - Skin/Abscess/Foreign Bdy General Chief complaint: Skin/Abscess/Foreign Body Stated complaint: rash? Time Seen by Provider: 09/26/22 07:41 Source: patient Mode of arrival: ambulatory History of Present Illness HPI narrative: 32-year-old female with known Brando's, presents with onset of rash that she states started this morning and falls primarily her buttocks, feet and hands and has not been associated with any fever/chills but was experiencing significant pain and discomfort since yesterday and had a sore throat 2 days ago. She denies any nausea, vomiting but states that she did complete a course of Bactrim at the end of August. Patient denies any alcohol or drug use, she denies the possibility of TB exposure or syphilis. Related Data Home Medications Medication Instructions Recorded Confirmed levothyroxine 75 mcg tablet 75 mcg PO DAILY 03/26/20 01/15/21 Previous Rx's Medication Instructions Recorded lorazepam 1 mg tablet (Ativan) 1 mg PO BEDTIME PRN anxiety #10 04/28/21 tabs levofloxacin 750 mg tablet 750 mg PO DAILY #7 tabs 08/16/21 phenazopyridine 200 mg tablet 200 mg PO TID PRN pain 6 doses #6 08/16/21 (Pyridium) tabs levothyroxine 75 mcg capsule 75 mcg PO DAILY #60 caps 12/04/21 omeprazole 40 mg capsule,delayed 40 mg PO DAILY 14 days #14 caps 06/12/22 release prednisone 50 mg tablet 50 mg PO DAILY 4 days #4 tabs 09/26/22 Allergies Allergy/AdvReac Type Severity Reaction Status Date / Time ventura Allergy Severe ANAPHYLAXIS Verified 09/26/22 07:50 soy [Soy] Allergy Severe ANAPHYLAXIS Verified 09/26/22 07:50 amoxicillin [Amoxicillin] Allergy Intermediate HIVES Verified 09/26/22 07:50 Amoxicillin Allergy Unknown anaphylaxis Uncoded 08/16/21 06:17 From Prozac AdvReac Intermediate HALLUCINATI Uncoded 08/16/21 06:17 ONS Review of Systems Review of Systems: Pertinent positives and negatives as stated in HPI [facility] Past Medical History Source: nursing notes reviewed Medical History Deafness in right ear Brando thyroiditis, fibrous variant Hypertension Morbid obesity with body mass index (BMI) of 40.0 to 44.9 in adult PCOS (polycystic ovarian syndrome) Surgical History H/O wrist surgery Hx of section Hx of tonsillectomy Hx of tubal ligation Social History Social History Alcohol intake: current Alcohol intake frequency: holidays/special occasions only Alcohol type: wine Patient Tobacco Use Status: Current everyday Tobacco user Cigarettes Per Day: 2 Smoked in Last 30 Days: Yes Use of substances other than those prescribed or required for medical reasons: No Advance Directives: No Advance Directives Information Provided: Yes Sexual orientation: Straight/Heterosexual Physical Exam Vital Signs: Vital Signs: Last Vital Signs Temp 97.8 F 09/26/22 07:41 Pulse 91 09/26/22 07:55 Resp 18 09/26/22 07:41 BP 124/85 09/26/22 07:41 Pulse Ox 97 09/26/22 07:41 O2 Del Method Room Air 09/26/22 07:41 BMI result Body Mass Index 42.5 VITAL SIGNS: Reviewed. GENERAL: Well developed, well nourished, in no acute distress. HEAD: Normocephalic/atraumatic EYES: PERRLA, EOMI EARS: Ext canals without abnormality, TMs non-bulging and non-erythematous NOSE: Nares patent bilateral OROPHARYNX: no oral lesions noted, posterior pharynx clear and non-erythematous without noted tonsillar enlargement/erythema/exudates, there are 3 lesions noted on the hard palate with several williams oral lesions NECK: Supple, no adenopathy LUNGS: Normal breath sounds. No adventitious sounds or accessory muscle use. SpO2<97> CARDIOVASCULAR: Regular rate and rhythm without noted murmurs, no JVD or lower extremity edema. ABDOMEN: Soft, non-tender, non-distended with bowel sounds. MUSCULOSKELETAL: No tenderness, deformities, or joint effusions noted on gross inspection. EXTREMITIES: No cyanosis, clubbing or edema, bilateral hands have flat erythematous painful rash predominantly in distal fingers but noted to be on the palm side, feet also noted to have flat non raised erythematous lesions that included the soles, bilateral lower extremities with scattered papular areas that are not significant, there is no involvement of the area, there are scattered areas on the inferior portion of bilateral buttocks.. SKIN: Inspection of the skin reveals please see description under extremities and oral pharynx NEUROLOGIC: Alert and oriented x 4. Strength and sensation to light touch were grossly intact x 4. Medications Administered Discontinued Medications Generic Name Dose Route Start Last Admin Trade Name Kacy PRN Reason Stop Dose Admin Acetaminophen 975 mg 09/26/22 09:10 09/26/22 09:16 Acetaminophen 325 Mg Tablet PO 09/26/22 09:11 975 mg ONCE ONE Administration Ketorolac Tromethamine 15 mg 09/26/22 09:10 09/26/22 09:17 Ketorolac Tromethamine 30 Mg/Ml Vial IVPUSH 09/26/22 09:11 15 mg ONCE ONE Administration Methylprednisolone Sodium Succinate 125 mg 09/26/22 09:00 09/26/22 09:07 Methylprednisolone Sod Succ 125 Mg/2 Ml Vial IVPUSH 09/26/22 09:01 125 mg ONCE ONE Administration Medical Decision Making Medical Decision Making [facility] Narrative: 32-year-old female with history and clinical presentation, DDX: Brando associated rash, Viral exanthem, syphilis, gonorrhea, less likely felt to be HSV/Lyme/SJS due to the absence of bullae and vesicular nature. On re-evaluation patient is feeling improved, I have reviewed hematologic indices which do not demonstrate evidence to suggest infection as there is no leukocytosis or left shift, there is a noted lymphopenia may be indicative of viral etiology. There are no coagulation derangements. Chemistry indices are grossly within normal limits to include a TSH which is within normal limits. ESR is within normal limits though there is a slight bump in CRP. Urinalysis negative for UTI and urine is negative. GC chlamydia is negative, UDS is negative and syphilis screen is pending. Respiratory panel to include rapid strep is negative for evidence of derangements. My interpretation is this may be a component of vcmh-[id number]-[id number]/viral exanthem. Patient did receive initial steroids with some improvement as well as receiving combination analgesics which additionally helped with the discomfort that she is experiencing. She is otherwise discharged home on a short course of steroids with strict instructions to follow-up with her primary care provider. Differential Diagnosis Differential Diagnoses: The differential diagnosis associated with the presentation includes Please see the discussion above Admission/Observation Consideration of admission/observation: Escalation of care including admission/observation considered Please see the discussion above Lab Data MDM Lab Attestation statement: I reviewed the patient's lab results. Please see the discussion above 09/26/22 08:29 09/26/22 08:29 Labs: Lab Results 09/26/22 09/26/22 09/26/22 Range/Units 08:29 08:29 08:29 WBC 5.1 (4.8-10.8) X10*3/uL RBC 4.55 (4.20-5.50) X10*6/uL Hgb 12.8 (12.0-16.0) g/dl Hct 38.5 (37.0-47.0) % MCV 84.6 (80.0-98.0) fL MCH 28.1 (27.0-33.0) pg MCHC 33.2 (31.0-35.0) g/dl RDW 12.4 (11.0-16.0) % Plt Count 180 (160-400) X10*3/uL MPV 10.9 (9.4-12.3) fL Immature Gran % (Auto) 0.6 H (0.0-0.4) % Neut % (Auto) 67.6 (45-73) % Lymph % (Auto) 19.8 L (20-40) % [place] % (Auto) 7.9 (2-11) % Eos % (Auto) 3.7 (0-4) % Baso % (Auto) 0.4 (0-2) % Lymph # (Auto) 1.0 L (1.2-4.9) X10*3/uL [place] # (Auto) 0.4 (0.1-1.2) X10*3/uL Eos # (Auto) 0.2 (0.0-0.4) X10*3/uL Baso # (Auto) 0.0 (0.0-0.2) X10*3/uL Abs Immat Gran (auto) 0.03 (0.00-0.03) X10*3/uL Absolute Neuts (auto) 3.4 (2.0-8.3) x10*3/uL Absolute Nucleated RBC 0.000 (0.0-0.012) X10*3/uL Nucleated RBC % (auto) 0.0 (0.0-0.2) /100WBC ESR 13 (0-20) MM/HR PT (10.0-13.1) SEC INR (0.9-1.1) Sodium 136 (135-145) mmol/L Potassium 4.1 (3.3-5.1) mmol/L Chloride 102 (96-108) mmol/L Carbon Dioxide 22 (22-29) mmol/L Anion Gap 16 (12-20) BUN 10 (9-16) mg/dL Creatinine 0.77 (0.5-1.4) mg/dL Estim Creat Clear Calc 112.6 Estimated GFR > 60 Random Glucose 115 (60-115) mg/dL Calcium 9.9 D (8.4-10.2) mg/dL Total Bilirubin 0.5 (0.0-1.0) mg/dL AST 17 (5-31) U/L ALT 27 (0-31) U/L Alkaline Phosphatase 85 (39-117) U/L C-Reactive Protein 0.57 H (< or = 0.50) mg/dL Total Protein 7.4 (6.5-8.0) g/dL Albumin 4.4 (3.5-5.0) g/dL TSH 2.50 (0.32-4.0) uIU/mL Urine Color Urine Appearance Urine pH (5.0-9.0) Ur Specific [place] (1.005-1.025) Urine Protein (Neg-Trace) mg/dL Urine Glucose (UA) (Negative) mg/dL Urine Ketones (Negative) mg/dL Urine Blood (Negative) Urine Nitrite (Negative) Ur Leukocyte Esterase (Negative) Urine RBC (0-2) /HPF Urine WBC (0-5) /HPF Ur Squamous Epith Cells (0-2) /HPF Urine Bacteria (None Seen) Hyaline Casts (0-2) /LPF Urine Test (NEGATIVE) Urine Opiates Screen (Not Detect) Urine Fentanyl Screen (Not Detect) Ur Barbiturates Screen (Not Detect) Ur Phencyclidine Scrn (Not Detect) Ur Amphetamines Screen (Not Detect) U Benzodiazepines Scrn (Not Detect) Urine Cocaine Screen (Not Detect) U Marijuana (THC) Screen (Not Detect) Chlam trachomat DNA PCR (Not Detect.) Influenza Type A (PCR) (Negative) Influenza Type B (PCR) (Negative) N.gonorrhoeae DNA (PCR) (Not Detect.) RSV RNA Qual (PCR) (Negative) SARS-CoV-2 RNA (RT-PCR) (Negative) S. pyogenes GrpA AIDEE (Negative) 09/26/22 09/26/22 09/26/22 Range/Units 08:29 08:29 08:29 WBC (4.8-10.8) X10*3/uL RBC (4.20-5.50) X10*6/uL Hgb (12.0-16.0) g/dl Hct (37.0-47.0) % MCV (80.0-98.0) fL MCH (27.0-33.0) pg MCHC (31.0-35.0) g/dl RDW (11.0-16.0) % Plt Count (160-400) X10*3/uL MPV (9.4-12.3) fL Immature Gran % (Auto) (0.0-0.4) % Neut % (Auto) (45-73) % Lymph % (Auto) (20-40) % [place] % (Auto) (2-11) % Eos % (Auto) (0-4) % Baso % (Auto) (0-2) % Lymph # (Auto) (1.2-4.9) X10*3/uL [place] # (Auto) (0.1-1.2) X10*3/uL Eos # (Auto) (0.0-0.4) X10*3/uL Baso # (Auto) (0.0-0.2) X10*3/uL Abs Immat Gran (auto) (0.00-0.03) X10*3/uL Absolute Neuts (auto) (2.0-8.3) x10*3/uL Absolute Nucleated RBC (0.0-0.012) X10*3/uL Nucleated RBC % (auto) (0.0-0.2) /100WBC ESR (0-20) MM/HR PT 10.6 (10.0-13.1) SEC INR 0.9 (0.9-1.1) Sodium (135-145) mmol/L Potassium (3.3-5.1) mmol/L Chloride (96-108) mmol/L Carbon Dioxide (22-29) mmol/L Anion Gap (12-20) BUN (9-16) mg/dL Creatinine (0.5-1.4) mg/dL Estim Creat Clear Calc Estimated GFR Random Glucose (60-115) mg/dL Calcium (8.4-10.2) mg/dL Total Bilirubin (0.0-1.0) mg/dL AST (5-31) U/L ALT (0-31) U/L Alkaline Phosphatase (39-117) U/L C-Reactive Protein (< or = 0.50) mg/dL Total Protein (6.5-8.0) g/dL Albumin (3.5-5.0) g/dL TSH (0.32-4.0) uIU/mL Urine Color Urine Appearance Urine pH (5.0-9.0) Ur Specific [place] (1.005-1.025) Urine Protein (Neg-Trace) mg/dL Urine Glucose (UA) (Negative) mg/dL Urine Ketones (Negative) mg/dL Urine Blood (Negative) Urine Nitrite (Negative) Ur Leukocyte Esterase (Negative) Urine RBC (0-2) /HPF Urine WBC (0-5) /HPF Ur Squamous Epith Cells (0-2) /HPF Urine Bacteria (None Seen) Hyaline Casts (0-2) /LPF Urine Test (NEGATIVE) Urine Opiates Screen (Not Detect) Urine Fentanyl Screen (Not Detect) Ur Barbiturates Screen (Not Detect) Ur Phencyclidine Scrn (Not Detect) Ur Amphetamines Screen (Not Detect) U Benzodiazepines Scrn (Not Detect) Urine Cocaine Screen (Not Detect) U Marijuana (THC) Screen (Not Detect) Chlam trachomat DNA PCR (Not Detect.) Influenza Type A (PCR) NEGATIVE (Negative) Influenza Type B (PCR) NEGATIVE (Negative) N.gonorrhoeae DNA (PCR) (Not Detect.) RSV RNA Qual (PCR) NEGATIVE (Negative) SARS-CoV-2 RNA (RT-PCR) NEGATIVE (Negative) S. pyogenes GrpA AIDEE Negative (Negative) 09/26/22 09/26/22 09/26/22 Range/Units 08:49 08:49 08:49 WBC (4.8-10.8) X10*3/uL RBC (4.20-5.50) X10*6/uL Hgb (12.0-16.0) g/dl Hct (37.0-47.0) % MCV (80.0-98.0) fL MCH (27.0-33.0) pg MCHC (31.0-35.0) g/dl RDW (11.0-16.0) % Plt Count (160-400) X10*3/uL MPV (9.4-12.3) fL Immature Gran % (Auto) (0.0-0.4) % Neut % (Auto) (45-73) % Lymph % (Auto) (20-40) % [place] % (Auto) (2-11) % Eos % (Auto) (0-4) % Baso % (Auto) (0-2) % Lymph # (Auto) (1.2-4.9) X10*3/uL [place] # (Auto) (0.1-1.2) X10*3/uL Eos # (Auto) (0.0-0.4) X10*3/uL Baso # (Auto) (0.0-0.2) X10*3/uL Abs Immat Gran (auto) (0.00-0.03) X10*3/uL Absolute Neuts (auto) (2.0-8.3) x10*3/uL Absolute Nucleated RBC (0.0-0.012) X10*3/uL Nucleated RBC % (auto) (0.0-0.2) /100WBC ESR (0-20) MM/HR PT (10.0-13.1) SEC INR (0.9-1.1) Sodium (135-145) mmol/L Potassium (3.3-5.1) mmol/L Chloride (96-108) mmol/L Carbon Dioxide (22-29) mmol/L Anion Gap (12-20) BUN (9-16) mg/dL Creatinine (0.5-1.4) mg/dL Estim Creat Clear Calc Estimated GFR Random Glucose (60-115) mg/dL Calcium (8.4-10.2) mg/dL Total Bilirubin (0.0-1.0) mg/dL AST (5-31) U/L ALT (0-31) U/L Alkaline Phosphatase (39-117) U/L C-Reactive Protein (< or = 0.50) mg/dL Total Protein (6.5-8.0) g/dL Albumin (3.5-5.0) g/dL TSH (0.32-4.0) uIU/mL Urine Color Yellow Urine Appearance Clear Urine pH 5.5 (5.0-9.0) Ur Specific [place] 1.025 (1.005-1.025) Urine Protein Trace (Neg-Trace) mg/dL Urine Glucose (UA) Negative (Negative) mg/dL Urine Ketones Negative (Negative) mg/dL Urine Blood Negative (Negative) Urine Nitrite Negative (Negative) Ur Leukocyte Esterase Trace H (Negative) Urine RBC 0-2 (0-2) /HPF Urine WBC 0-5 (0-5) /HPF Ur Squamous Epith Cells 6-10 (0-2) /HPF Urine Bacteria 1+ (None Seen) Hyaline Casts 0-2 (0-2) /LPF Urine Test NEGATIVE (NEGATIVE) Urine Opiates Screen (Not Detect) Urine Fentanyl Screen (Not Detect) Ur Barbiturates Screen (Not Detect) Ur Phencyclidine Scrn (Not Detect) Ur Amphetamines Screen (Not Detect) U Benzodiazepines Scrn (Not Detect) Urine Cocaine Screen (Not Detect) U Marijuana (THC) Screen (Not Detect) Chlam trachomat DNA PCR NOT DETECTED (Not Detect.) Influenza Type A (PCR) (Negative) Influenza Type B (PCR) (Negative) N.gonorrhoeae DNA (PCR) NOT DETECTED (Not Detect.) RSV RNA Qual (PCR) (Negative) SARS-CoV-2 RNA (RT-PCR) (Negative) S. pyogenes GrpA AIDEE (Negative) 09/26/22 Range/Units 08:49 WBC (4.8-10.8) X10*3/uL RBC (4.20-5.50) X10*6/uL Hgb (12.0-16.0) g/dl Hct (37.0-47.0) % MCV (80.0-98.0) fL MCH (27.0-33.0) pg MCHC (31.0-35.0) g/dl RDW (11.0-16.0) % Plt Count (160-400) X10*3/uL MPV (9.4-12.3) fL Immature Gran % (Auto) (0.0-0.4) % Neut % (Auto) (45-73) % Lymph % (Auto) (20-40) % [place] % (Auto) (2-11) % Eos % (Auto) (0-4) % Baso % (Auto) (0-2) % Lymph # (Auto) (1.2-4.9) X10*3/uL [place] # (Auto) (0.1-1.2) X10*3/uL Eos # (Auto) (0.0-0.4) X10*3/uL Baso # (Auto) (0.0-0.2) X10*3/uL Abs Immat Gran (auto) (0.00-0.03) X10*3/uL Absolute Neuts (auto) (2.0-8.3) x10*3/uL Absolute Nucleated RBC (0.0-0.012) X10*3/uL Nucleated RBC % (auto) (0.0-0.2) /100WBC ESR (0-20) MM/HR PT (10.0-13.1) SEC INR (0.9-1.1) Sodium (135-145) mmol/L Potassium (3.3-5.1) mmol/L Chloride (96-108) mmol/L Carbon Dioxide (22-29) mmol/L Anion Gap (12-20) BUN (9-16) mg/dL Creatinine (0.5-1.4) mg/dL Estim Creat Clear Calc Estimated GFR Random Glucose (60-115) mg/dL Calcium (8.4-10.2) mg/dL Total Bilirubin (0.0-1.0) mg/dL AST (5-31) U/L ALT (0-31) U/L Alkaline Phosphatase (39-117) U/L C-Reactive Protein (< or = 0.50) mg/dL Total Protein (6.5-8.0) g/dL Albumin (3.5-5.0) g/dL TSH (0.32-4.0) uIU/mL Urine Color Urine Appearance Urine pH (5.0-9.0) Ur Specific [place] (1.005-1.025) Urine Protein (Neg-Trace) mg/dL Urine Glucose (UA) (Negative) mg/dL Urine Ketones (Negative) mg/dL Urine Blood (Negative) Urine Nitrite (Negative) Ur Leukocyte Esterase (Negative) Urine RBC (0-2) /HPF Urine WBC (0-5) /HPF Ur Squamous Epith Cells (0-2) /HPF Urine Bacteria (None Seen) Hyaline Casts (0-2) /LPF Urine Test (NEGATIVE) Urine Opiates Screen Not Detected (Not Detect) Urine Fentanyl Screen Not Detected (Not Detect) Ur Barbiturates Screen Not Detected (Not Detect) Ur Phencyclidine Scrn Not Detected (Not Detect) Ur Amphetamines Screen Not Detected (Not Detect) U Benzodiazepines Scrn Not Detected (Not Detect) Urine Cocaine Screen Not Detected (Not Detect) U Marijuana (THC) Screen Not Detected (Not Detect) Chlam trachomat DNA PCR (Not Detect.) Influenza Type A (PCR) (Negative) Influenza Type B (PCR) (Negative) N.gonorrhoeae DNA (PCR) (Not Detect.) RSV RNA Qual (PCR) (Negative) SARS-CoV-2 RNA (RT-PCR) (Negative) S. pyogenes GrpA AIDEE (Negative) Independent Interpretation I performed an independent interpretation of an: EKG Interpretation: Normal sinus rhythm, HR-83, no STEMI, CT/QRS/QTC is within normal limits. External Record Review External record reviewed: Outpatient record and Prior outpatient labs Discharge Plan Discharge Clinical Impression: Viral exanthem, Hand, foot and mouth disease, CRP elevated Patient Disposition: Home, Self-Care Instructions: Viral Exanthem (ED) Additional Instructions: 1. Resume all home medications as prescribed. Please follow-up on syphilis screen 2. Complete the short course of steroids as ordered. 3. You must follow-up with primary care provider tomorrow morning. Return to the ER for any worsening symptoms. Prescriptions: New prednisone 50 mg tablet 50 mg PO DAILY 4 Days Qty: 4 0RF No Action lorazepam [Ativan] 1 mg tablet 1 mg PO BEDTIME PRN (Reason: anxiety) Qty: 10 0RF levofloxacin 750 mg tablet 750 mg PO DAILY Qty: 7 0RF phenazopyridine [Pyridium] 200 mg tablet 200 mg PO TID PRN (Reason: pain) Qty: 6 0RF levothyroxine 75 mcg capsule 75 mcg PO DAILY Qty: 60 0RF omeprazole 40 mg capsule,delayed release(DR/EC) 40 mg PO DAILY 14 Days Qty: 14 0RF levothyroxine 75 mcg tablet 75 mcg PO DAILY Referrals: Jonathon García MD [Primary Care Provider] - Stand Alone Forms: Work/School Release
--- NOTE | 2022-09-26 08:36 | PC.NURSE ---
pt a&ox3. respirations even and unlabored but was short of breath on exertion, lung sounds clear. skin warm pink and dry. reports pain in hands and feet. pt has bilateral rashes/pustules on hands and feet as well as both butt cheeks, the rash extends down the back of the right thigh. Rash noted on bottom lip and left ear. no rash noted inside her mouth.
[2022-09-26 08:39] LABS: MANUAL DIFF FLAG NO
[2022-09-26 08:50] LABS: Basophils Percent Auto 0.4 % (0-2); Eosinophils Absolute Auto 0.2 X10*3/uL (0.0-0.4); Eosinophils Percent Auto 3.7 % (0-4); Hematocrit 38.5 % (37.0-47.0); Hemoglobin 12.8 g/dl (12.0-16.0); INTERNATIONAL NORM RATIO 0.9 (0.9-1.1); Imm Gran Abs Auto 0.03 X10*3/uL (0.00-0.03); Imm Gran Pct Auto 0.6 % (0.0-0.4); Lymphocytes Percent Auto 19.8 % (20-40); Mean Corpuscular HGB Conc 33.2 g/dl (31.0-35.0); Mean Corpuscular Hemoglobin 28.1 pg (27.0-33.0); Mean Corpuscular Volume 84.6 fL (80.0-98.0); Mean Platelet Volume 10.9 fL (9.4-12.3); Monocytes Absolute Auto 0.4 X10*3/uL (0.1-1.2); Monocytes Percent Auto 7.9 % (2-11); Neutrophils Absolute Auto 3.4 x10*3/uL (2.0-8.3); Neutrophils Percent Auto 67.6 % (45-73); Platelet Count 180 X10*3/uL (160-400); Prothrombin Time 10.6 SEC (10.0-13.1); Red Blood Count 4.55 X10*6/uL (4.20-5.50); Red Cell Distribution Width 12.4 % (11.0-16.0); White Blood Count 5.1 X10*3/uL (4.8-10.8)
[2022-09-26 09:02] LABS: Alanine Aminotransferase 27 U/L (0-31); Albumin Level 4.4 g/dL (3.5-5.0); Alkaline Phosphatase 85 U/L (39-117); Anion Gap 16 (12-20); Aspartate Amino Transferase 17 U/L (5-31); Bilirubin Total 0.5 mg/dL (0.0-1.0); Blood Urea Nitrogen 10 mg/dL (9-16); Calcium 9.9 mg/dL (8.4-10.2); Carbon Dioxide 22 mmol/L (22-29); Chloride 102 mmol/L (96-108); Creatinine Clr Calc Pharmacy 112.6; Estimated Glomerular Filt Rate > 60; Glucose Random 115 mg/dL (60-115); Potassium 4.1 mmol/L (3.3-5.1); Sodium 136 mmol/L (135-145); Strep A Nucleic Acid Negative (Negative); Total Protein 7.4 g/dL (6.5-8.0)
[2022-09-26 09:05] LABS: Appearance Urine Clear; Color Urine Yellow; Glucose Urine UA Negative (Negative); Leukocyte Esterase Urine Trace (Negative); Nitrite Urine Negative (Negative); PH 5.5 (5.0-9.0); Specific Gravity - Urine 1.025 (1.005-1.025); UMIC TRIGGER UACC YES; Urine Blood Negative (Negative); Urine Ketones Negative (Negative); Urine Protein Trace mg/dL (Neg-Trace)
[2022-09-26 09:06] LABS: UPreg QC Valid YES; Urine Pregnancy NEGATIVE (NEGATIVE)
[2022-09-26] MEDS: methylPREDNISolone Sod Succ 125 MG/2 ML VIAL IVPUSH (09:07)
[2022-09-26 09:10] LABS: Amphetamine Screen Urine Not Detected (Not Detect); Bacteria Urine 1+ (None Seen); Barbiturates, Urine Not Detected (Not Detect); Benzodiazepines Screen Urine Not Detected (Not Detect); Cannabinoid Screen Urine Not Detected (Not Detect); Cocaine Screen Urine Not Detected (Not Detect); Fentanyl, urine Not Detected (Not Detect); Hyaline Casts Urine 0-2 /LPF (0-2); Opiate Screen Urine Not Detected (Not Detect); Phencyclidine Screen Urine Not Detected (Not Detect); RBC Urine 0-2 /HPF (0-2); WBC Urine 0-5 /HPF (0-5)
[2022-09-26] MEDS: Acetaminophen 325 MG TABLET 975 MG PO (09:16)
[2022-09-26] MEDS: Ketorolac Tromethamine 30 MG/ML VIAL 15 MG IVPUSH (09:17)
[2022-09-26 09:34] LABS: Influenza A PCR NEGATIVE (Negative); Influenza B PCR NEGATIVE (Negative); Resp Syncy Virus RNA Qual PCR NEGATIVE (Negative); SARS COV2 PCR INHOUSE NEGATIVE (Negative)
[2022-09-26 09:39] LABS: Erythrocyte Sedimentation Rate 13 MM/HR (0-20)
[2022-09-26 10:00] LABS: C Reactive Protein 0.57 mg/dL (< or = 0.50)
[2022-09-26 10:36] LABS: CT PCR NOT DETECTED (Not Detect.); NG PCR NOT DETECTED (Not Detect.)
[2022-09-27 04:49] LABS: Syphilis Screen Nonreactive (Nonreactive)
== END 2022-09-26 11:52 | disposition home or self-care (01) ==
PROVIDERS: Emergency Provider Student in an Organized Health Care Education/Training Program; PCP Family Medicine
DX: B09 Unspecified viral infection characterized by skin and mucous membrane lesions (principal); R79.82 Elevated C-reactive protein (CRP); R94.31 Abnormal electrocardiogram [ECG] [EKG]; I10 Essential (primary) hypertension; Z20.822 Contact with and (suspected) exposure to COVID-19; Z20.828 Contact with and (suspected) exposure to other viral communicable diseases; Z79.899 Other long term (current) drug therapy
CPT/HCPCS: 0241U; 0353U; 36415; 80053; 80307; 81001; 81003; 81025; 84443; 85025; 85610; 85652; 86140; 86780; 87651; 93005; 96374; 96375; 99284; 99285; J1885; J2930

== ENCOUNTER → 2022-09-26 08:13 | Outpatient (BNV) | payer OTHER, SELFPAY | PROVIDERS: Emergency Provider Student in an Organized Health Care Education/Training Program; PCP Family Medicine; Visit Provider Internal Medicine Cardiovascular Disease | DX: R94.31 Abnormal electrocardiogram [ECG] [EKG] (principal) | CPT/HCPCS: 93010 ==

== ENCOUNTER 2023-01-13 13:50 | Emergency (ER) | payer OTHER, SELFPAY ==
--- NOTE | ~2023-01-13 | XR_ITS ---
EXAMINATION: XR CHEST CLINICAL INFORMATION: Cough. COMPARISON: 02/21/2020 TECHNIQUE: 2 views of the chest were obtained. FINDINGS: The lungs are well expanded. No focal consolidation. No pleural effusion. Cardiac silhouette is unchanged. XR/XR chest 2V IMPRESSION: No acute abnormality.
[2023-01-13 14:04] VITALS: BP 110/78; BP 139/81; PULSE 92; PULSE 98; RESP 18; TEMP 36.8; O2SAT 97; O2SAT 99; BMI 42.2
--- NOTE | 2023-01-13 14:08 | ECG_ITS ---
Test Reason : syncope Blood Pressure : / mmHG Vent. Rate : 078 BPM Atrial Rate : 078 BPM P-R Int : 130 ms QRS Dur : 080 ms QT Int : 394 ms P-R-T Axes : 007 012 011 degrees QTc Int : 449 ms Normal sinus rhythm Normal ECG When compared with ECG of 26-SEP-2022 08:31, No significant change was found Referred By: Pat Murdock Electronically Signed By:JUSTYN FERRO MD
--- NOTE | 2023-01-13 14:25 | ED.GENADULT ---
HPI - General Adult General Chief complaint: Syncope Stated complaint: SYNCOPAL EPISODE AT WORK Time Seen by Provider: 01/13/23 14:07 Source: patient, EMS and RN notes reviewed Mode of arrival: EMS Limitations: no limitations History of Present Illness HPI narrative: Patient is a 32-year-old female with history of HTN, PCOS, Brando thyroiditis presenting to the emergency department after syncopal episode at work prior to arrival. Patient reports she has had upper respiratory symptoms for the past two weeks including nasal congestion and nonproductive cough. Denies fevers/chills. States that she was laughing with co-workers so hard that she was having difficulty catching her breath. States this then caused her to begin coughing uncontrollably, which led to her syncopal episode. She reports that co-workers denied head strike but reported a very brief (a few seconds) period of unresponsiveness. She also reports urinary incontinence. She reports feeling slightly lightheaded since. She denies chest pain or palpitations. Denies prior similar episodes. Denies headache or vision changes. Denies any recent falls or other trauma. MD complaint: syncope Onset (ago): hour(s) Associated symptoms: cough and shortness of breath Treatments prior to arrival: other (IV fluids from EMS) Related Data Home Medications Medication Instructions Recorded Confirmed levothyroxine 75 mcg tablet 75 mcg PO DAILY 03/26/20 01/15/21 Previous Rx's Medication Instructions Recorded lorazepam 1 mg tablet (Ativan) 1 mg PO BEDTIME PRN anxiety #10 04/28/21 tabs levofloxacin 750 mg tablet 750 mg PO DAILY #7 tabs 08/16/21 phenazopyridine 200 mg tablet 200 mg PO TID PRN pain 6 doses #6 08/16/21 (Pyridium) tabs levothyroxine 75 mcg capsule 75 mcg PO DAILY #60 caps 12/04/21 omeprazole 40 mg capsule,delayed 40 mg PO DAILY 14 days #14 caps 06/12/22 release prednisone 50 mg tablet 50 mg PO DAILY 4 days #4 tabs 09/26/22 albuterol sulfate 90 mcg/actuation 2 puff inhalation Q4-6H PRN 01/13/23 aerosol inhaler shortness of breath or wheezing #6.7 grams azithromycin 250 mg tablet 250 mg PO DAILY 6 days #6 tabs 01/13/23 benzonatate 100 mg capsule 100 mg PO TID PRN cough #20 caps 01/13/23 Allergies Allergy/AdvReac Type Severity Reaction Status Date / Time ventura Allergy Severe ANAPHYLAXIS Verified 09/26/22 07:50 soy [Soy] Allergy Severe ANAPHYLAXIS Verified 09/26/22 07:50 amoxicillin [Amoxicillin] Allergy Intermediate HIVES Verified 09/26/22 07:50 Amoxicillin Allergy Unknown anaphylaxis Uncoded 08/16/21 06:17 From Prozac AdvReac Intermediate HALLUCINATI Uncoded 08/16/21 06:17 ONS Review of Systems Review of Systems: As per HPI. Yes all other systems are reviewed and are negative Constitutional: Constitutional: Reports as per HPI [facility] Past Medical History Medical History Deafness in right ear Brando thyroiditis, fibrous variant Hypertension Morbid obesity with body mass index (BMI) of 40.0 to 44.9 in adult PCOS (polycystic ovarian syndrome) Surgical History H/O wrist surgery Hx of section Hx of tonsillectomy Hx of tubal ligation Social History Social History Alcohol intake: current Alcohol intake frequency: holidays/special occasions only Alcohol type: wine Patient Tobacco Use Status: Current everyday Tobacco user Cigarettes Per Day: 2 Advance Directives: No Sexual orientation: Straight/Heterosexual Physical Exam ED Vital Signs: Vital Signs - 24 hr 01/13/23 14:04 Temperature 98.2 F Pulse Rate 92 Respiratory Rate 18 Blood Pressure 139/81 Pulse Oximetry 97 Oxygen Delivery Method Room Air BMI result Body Mass Index 42.2 Vital signs have been reviewed and appear to be correct. Blood pressure normal. Heart rate normal. Respiratory rate normal. Temperature normal. Oxygen saturation normal. Const General: cooperative, healthy appearing and no acute distress Orientation/consciousness: oriented to person, oriented to place, oriented to time and patient oriented x3 Limitations: no limitations HENMT Head: Yes normocephalic and Yes atraumatic Ears: external ears normal General nose exam: Normal external nose present Face and sinus: Yes face symmetric Mouth: oropharynx normal and moist mucous membranes Throat: Yes uvula midline Eyes Pupils: Equal, round and reactive pupils present Neck Neck: Yes normal visual inspection and Yes supple Resp Effort & Inspection: normal respiratory effort and able to speak in complete sentences Auscultation: clear to auscultation bilaterally and wheezes scattered wheezes Cardio Rate: regular rate Rhythm: regular rhythm Heart sounds: S1 normal heart sound present and S2 normal heart sound present GI Palpation (GI): Soft to palpation and nontender Auscultation: normoactive bowel sounds General: Yes no CVA tenderness Back/Spine/Pelvis Back: no CVA tenderness Skin General skin exam: elasticity normal and turgor normal Neuro General: oriented to person, oriented to place, oriented to time, patient oriented x3, moves all extremities, no focal motor deficits and CN's II-XI intact bilaterally Cranial nerves: Yes Equal, round and reactive pupils present Cognition (Neuro): normal cognition Extrem General: Yes full ROM, Yes no pedal edema and Yes no calf tenderness Psych Mental Status: mental status grossly normal Affect: normal affect Thought process: Normal thought process present Medications Administered Discontinued Medications Generic Name Dose Route Start Last Admin Trade Name Freq PRN Reason Stop Dose Admin Sodium Chloride 1,000 mls @ 999 mls/hr 01/13/23 14:45 01/13/23 14:43 Ns IV 01/13/23 15:45 999 mls/hr .Q1H1M CHARMAINE Administration Medical Decision Making Medical Decision Making MDM Narrative: Patient is a 32-year-old female with history of HTN, PCOS, Brando thyroiditis presenting to the emergency department after syncopal episode at work prior to arrival. On exam patient is awake, A+Ox3, VS WNL, afebrile, normal neurological exam without focal deficits, physical exam findings as above. Given reported symptoms and physical exam findings, initial differential includes vasovagal syncope, orthostatic intolerance, anemia, electrolyte abnormality, cardiac dysrhythmia. Do not suspect AAA rupture, aortic dissection, SAH. PE unlikely based on PERC score. EKG shows normal sinus rhythm. Labs notable for negative HCG, no electrolyte abnormalities, no leukocytosis, no anemia. X-ray chest notable for no acute abnormalities. My interpretation is in agreement with the radiologist's interpretation. Results discussed with patient and all questions answered. Feel patient is stable for discharge home. Will treat for bronchitis with azithromycin, albuterol inhaler, and benzonatate. Instructed patient to follow up with primary care provider. Return precautions discussed at bedside. Patient verbalized understanding of and agreement with plan. PERC Rule for Pulmonary Embolism from [email or web address] on 01/13/2023 All calculations should be rechecked by clinician prior to use RESULT SUMMARY: 0 criteria No need for further workup, as <2% chance of PE. If no criteria are positive and clinician?s pre-test probability is <15%, PERC Rule criteria are satisfied. INPUTS: Age >=0 ?> 0 = No HR >=00 ?> 0 = No O? sat on room air ?> 0 = No Unilateral leg swelling ?> 0 = No Hemoptysis ?> 0 = No Recent surgery or trauma ?> 0 = No Prior PE or DVT ?> 0 = No Hormone use ?> 0 = No Differential Diagnosis Differential Diagnoses: The differential diagnosis associated with the presentation includes As per MDM. Admission/Observation Consideration of admission/observation: Escalation of care including admission/observation considered Lab Data [facility] Lab Attestation statement: I reviewed the patient's lab results. As per [facility]. 01/13/23 15:06 01/13/23 15:06 Labs: Lab Results 01/13/23 Range/Units 15:06 Sodium 137 (135-145) mmol/L Potassium 3.5 (3.3-5.1) mmol/L Chloride 107 (96-108) mmol/L Carbon Dioxide 22 (22-29) mmol/L Anion Gap 12 (12-20) BUN 9 (9-16) mg/dL Creatinine 0.64 (0.5-1.4) mg/dL Estim Creat Clear Calc 134.9 Estimated GFR > 60 Random Glucose 103 (60-115) mg/dL Calcium 9.0 D (8.4-10.2) mg/dL Beta HCG, Quant < 2 mIU/mL Independent Interpretation I performed an independent interpretation of an: EKG and Plain X-Ray Interpretation: EKG shows normal sinus rhythm, rate 78 beats per minute, normal ND and QT intervals No acute abnormalities on chest x-ray Radiology Impression Discussion of test interpretation with radiology: I have reviewed the radiologist's reading. Radiologist Impression: XR/XR chest 2V IMPRESSION: No acute abnormality. External Record Review External record reviewed: Inpatient record, Office record and Outpatient record Prescription Management I considered prescription management with: Antibiotic and Other Discharge Plan Discharge Clinical Impression: Bronchitis, Syncope Patient Disposition: Home, Self-Care Instructions: Syncope (DC), How to Use a Metered-Dose Inhaler (ED), Acute Bronchitis (ED) Additional Instructions: You are being prescribed a course of antibiotics for bronchitis, please complete the course as prescribed. Follow-up with your primary care provider this week. Return to the emergency department if you develop worsening shortness of breath, chest pain, palpitations, dizziness, lightheadedness, fainting, or any other concerning symptoms. Prescriptions: New azithromycin 250 mg tablet 250 mg PO DAILY 6 Days Qty: 6 0RF Rx Instructions: Take 2 tabs for a total dose of 500mg on day one, then take 1 tab daily for the four days after that albuterol sulfate 90 mcg/actuation HFA aerosol inhaler 2 puff inhalation Q4-6H PRN (Reason: shortness of breath or wheezing) Qty: 6.7 0RF benzonatate 100 mg capsule 100 mg PO TID PRN (Reason: cough) Qty: 20 0RF No Action lorazepam [Ativan] 1 mg tablet 1 mg PO BEDTIME PRN (Reason: anxiety) Qty: 10 0RF levofloxacin 750 mg tablet 750 mg PO DAILY Qty: 7 0RF phenazopyridine [Pyridium] 200 mg tablet 200 mg PO TID PRN (Reason: pain) Qty: 6 0RF levothyroxine 75 mcg capsule 75 mcg PO DAILY Qty: 60 0RF omeprazole 40 mg capsule,delayed release(DR/EC) 40 mg PO DAILY 14 Days Qty: 14 0RF prednisone 50 mg tablet 50 mg PO DAILY 4 Days Qty: 4 0RF levothyroxine 75 mcg tablet 75 mcg PO DAILY Stand Alone Forms: Work/School Release
[2023-01-13] MEDS: 0.9 % Sodium Chloride 1,000 ML 999 ML IV (14:43)
[2023-01-13 15:11] LABS: MANUAL DIFF FLAG NO
[2023-01-13 15:14] LABS: Basophils Absolute Auto 0.1 X10*3/uL (0.0-0.2); Basophils Percent Auto 0.7 % (0-2); Eosinophils Absolute Auto 0.3 X10*3/uL (0.0-0.4); Eosinophils Percent Auto 2.8 % (0-4); Hematocrit 36.4 % (37.0-47.0); Hemoglobin 12.3 g/dl (12.0-16.0); Imm Gran Abs Auto 0.03 X10*3/uL (0.00-0.03); Imm Gran Pct Auto 0.3 % (0.0-0.4); Lymphocytes Absolute Auto 1.6 X10*3/uL (1.2-4.9); Lymphocytes Percent Auto 17.4 % (20-40); Mean Corpuscular HGB Conc 33.8 g/dl (31.0-35.0); Mean Corpuscular Hemoglobin 28.6 pg (27.0-33.0); Mean Corpuscular Volume 84.7 fL (80.0-98.0); Mean Platelet Volume 10.7 fL (9.4-12.3); Monocytes Absolute Auto 0.6 X10*3/uL (0.1-1.2); Monocytes Percent Auto 7.1 % (2-11); Neutrophils Absolute Auto 6.4 x10*3/uL (2.0-8.3); Neutrophils Percent Auto 71.7 % (45-73); Platelet Count 255 X10*3/uL (160-400); Red Cell Distribution Width 12.2 % (11.0-16.0); White Blood Count 8.9 X10*3/uL (4.8-10.8)
[2023-01-13 15:31] LABS: Anion Gap 12 (12-20); Blood Urea Nitrogen 9 mg/dL (9-16); Carbon Dioxide 22 mmol/L (22-29); Chloride 107 mmol/L (96-108); Creatinine Clr Calc Pharmacy 134.9; Estimated Glomerular Filt Rate > 60; Glucose Random 103 mg/dL (60-115); Potassium 3.5 mmol/L (3.3-5.1); Sodium 137 mmol/L (135-145)
[2023-01-13 15:37] LABS: HCG Quantitative < 2 mIU/mL
== END 2023-01-13 16:59 | disposition home or self-care (01) ==
PROVIDERS: Registered Nurse Emergency; Emergency Provider Student in an Organized Health Care Education/Training Program
DX: J40 Bronchitis, not specified as acute or chronic (principal); R55 Syncope and collapse; R05.9 Cough, unspecified; R06.02 Shortness of breath; F17.210 Nicotine dependence, cigarettes, uncomplicated; Z71.6 Tobacco abuse counseling; Z79.899 Other long term (current) drug therapy
CPT/HCPCS: 36415; 71046; 80048; 84702; 85025; 93005; 99283; 99284